=== PATIENT | female | born 2005 | race Caucasian/White ===

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

== ENCOUNTER 2024-10-06 11:33 | Outpatient (CLI) | payer BC, SELFPAY ==
[2024-10-06 12:41] LABS: Hematocrit 39.3 % (37.0-47.0); Hemoglobin 13.3 g/dL (12.2-16.2); Mean Corpuscular HGB Conc 33.8 g/dL (31.8-35.4); Mean Corpuscular Hemoglobin 29.8 pg (27.0-31.2); Mean Corpuscular Volume 88.1 fl (81-99); Mean Platelet Volume 9.8 fl (7.4-10.4); Neutrophils % 59.5 % (37.0-80.0); Platelet Count 297 K/mm3 (142-424); Red Blood Count 4.45 M/mm3 (4.20-5.40); Red Cell Distribution Width 12.5 % (11.5-17.5)
[2024-10-06 12:42] LABS: Basophils % 0.3 % (0.1-2.0); Eosinophils % 2.5 % (0.1-12.0); Lymphocytes # 1.9 K/mm3 (0.7-4.5); Lymphocytes % 31.9 % (10-50); Monocytes # 0.3 K/mm3 (0.1-1.0); Monocytes % 5.6 % (1.7-9.3); Neutrophils # 3.6 K/mm3 (1.8-7.8)
[2024-10-06 12:43] LABS: Alanine Aminotransferase 22 U/L (12-78); Albumin Level 4.2 g/dl (3.5-5.0); Albumin/Globulin Ratio 1.5 (1.1-1.8); Alkaline Phosphatase 62 U/L (38-126); Aspartate Amino Transferase 27 U/L (14-36); Bilirubin,Total 0.7 mg/dl (0.2-1.3); Blood Urea Nitrogen 11 mg/dl (7-17); Calcium 9.5 mg/dl (8.4-10.2); Carbon Dioxide 21 mmol/L (22.0-30.0); Chloride 106 mmol/L (98-107); Estimated Glomerular Filt Rate 127 ml/min (>60); GFR (African American) 154 ML/MIN (>60); Globulin 2.8 g/dL (1.3-3.2); Glucose 88 mg/dl (74-100); Sodium 137 mmol/L (136-145)
[2024-10-06 13:12] LABS: Thyroid Stimulating Hormone 0.84 uIU/mL (0.465-4.68)
[2024-10-06 13:15] LABS: Anion Gap 14.1 mEq/L (5-15); Potassium 4.1 mmoL/L (3.5-5.1)
== END 2024-10-06 23:59 | disposition home or self-care (01) ==
LOC: LAB 11:34
PROVIDERS: PCP Nurse Practitioner; Visit Provider Obstetrics & Gynecology
DX: R53.83 Other fatigue (principal); Z68.29 Body mass index [BMI] 29.0-29.9, adult; E66.3 Overweight
CPT/HCPCS: 36415; 80050; 80053; 82306; 84443; 85025

== ENCOUNTER 2024-10-17 09:49 | Outpatient (CLI) | payer BC, SELFPAY ==
--- NOTE | 2024-10-17 09:54 | US_ITS ---
PROCEDURE: US TRANSVAGINAL CLINICAL INDICATION: Painful menses, endometrosis, COMPARISON: No exams were available for comparison FINDINGS: Transvaginal sonographic images of the pelvis were obtained. UTERUS: 6.8 cm x 4.1cmx 2.8cm anteverted with a combined endometrial thickness of 9.7mm. There is a hypoechoic area in the endometrium on the left side measuring 4.8 mm. Possible polyp. LEFT OVARY: 3.3cmx2.5 cmx2.2cm with a volume of 9.5ml. There are multiple small peripheral follicles giving the ovary a polycystic appearance. There is a single dominant follicle measuring 1.2 cm. RIGHT OVARY: Surgically absent. Both ovaries are seen and appear normal. Doppler flow to both ovaries are seen. There is no fluid in the cul-de-sac. IMPRESSION: 1. Anteverted uterus normal in shape and size. The endometrium measures 9.7 mm and appears normal. 2. There is a 4.8 mm hyperechoic, round area within the endometrium that could represent a small polyp. 3. The left ovary appears polycystic and has a dominant follicle measuring 1.2 cm 4. Right ovary is surgically absent. 5. No fluid in the cul-de-sac. Dictated by: Kristopher Riggs MD 10/17/2024 11:00 Kristopher Riggs MD in [place] 10/17/2024 11:00
== END 2024-10-17 23:59 | disposition home or self-care (01) ==
LOC: RAD 09:50
PROVIDERS: PCP Nurse Practitioner; Visit Provider Obstetrics & Gynecology
DX: N80.9 Endometriosis, unspecified (principal); N94.6 Dysmenorrhea, unspecified; Z90.721 Acquired absence of ovaries, unilateral
CPT/HCPCS: 76830

== ENCOUNTER 2025-06-13 13:06 | Emergency (ER) | payer BC, SELFPAY ==
--- OUTSIDE RECORDS SUMMARY | 2006-03-07 | XMS_ITS | Encounter Summary ---
Author Organization [facility] Address [address] [place] [address] Care Team Providers Care Html Web Developer Name Role Phone Unavailable Primary Care Provider Unavailabl e Encounter Details Date Type Department Care Team (Late st Contact Info) Description 03/07/2006 Hospital Encounter [facility] Division of Otolaryngology [address] [place] [phone] Social History Tobacco Use Types Packs/Day [...]
--- OUTSIDE RECORDS SUMMARY | 2006-06-27 | XMS_ITS | Encounter Summary ---
Author Organization [facility] Address [address] [place] [address] Care Team Providers Care Excavating Machine Operator Name Role Phone Unavailable Primary Care Provider Unavailabl e Encounter Details Date Type Department Care Team (Late st Contact Info) Description 06/27/2006 Hospital Encounter [facility] Division of Otolaryngology [address] [place] [phone] Social History Tobacco Use Types Packs/Day [...]
--- OUTSIDE RECORDS SUMMARY | 2024-01-30 13:00 | XMS_ITS ---
Author Organization [facility] Address [address] [place] [address] Care Team Providers Care Cotton Breeder Name Role Phone Provider, [id number] Unavailable [phone] REASON FOR VISIT MMR (Measles / Mumps / Rubella) Vaccine Social History Sex Assigned At : Social History Observation Description Sex Assigned At Female Encounters Encounter Location Date Provider Diagnosis [id number] [address] 01/30/2024 [address] Provider Plan Of Treatment No Information Progress Notes * Savita GODWINeDOB: 4 (20 yo F)Acc No.[id number]:01/30/2024 Progress Note Patient: Elsy VILLALPANDO Provider: 1 [id number] Provider :2005 A ge:18 Y S ex:Female Date:01/30/2024 External Visit ID:[id number] Address:[address], [place] Pcp:[facility] Subjective: * Chief Complaints: * 1 . MMR (Measles / Mumps / Rubella) Vaccine. * Medical History: Objective: * Vitals: Assessment: Plan: * Treatment: * Billing Information: * Visit Code: * Procedure Codes: Care Plan Details* Images * 01.30.2024 ID INS * Electronic signature of [id number] Provider on 06/13/2025 at 12:34 PM CDT Sign off status: Pending * Provider: 1 8401 Provider Date: 0 01/30/2024 Generated for Printi ng/Faxing/eTransmitting on: 0 06/13/2025 12:34 PM CDT
[2025-06-13 13:16] VITALS: BP 123/74; PULSE 87; RESP 18; TEMP 36.7; O2SAT 97; BMI 30.2
--- OUTSIDE RECORDS SUMMARY | 2025-06-13 13:35 | XMS_ITS | Patient Health Record ---
Author Organization [facility] Address [address] [place] [address] Care Team Providers Care Pipe Fitter Supervisor Name Role Phone Melisa Land Unavailable [phone] Allergies No Known Allergies Results Component Value Reference Range Notes Flu/COVID Rapid Antigen ([facility]) Reviewed date:11/18/2024 10:35:33 AM Interpretation:Negative Performing Lab: Notes/Report: Negative Flu A neg Negative - Positive Flu B neg Negative - Positive SARS CoV 2 neg Negative - Positive Rapid Strep Screen ([facility]) Reviewed date:11/18/2024 10:35:05 AM Interpretation:Negative Performing Lab: Notes/Report: Negative Negative neg Reason For Referral No Information Medications Medication SIG (Take, Route, Frequency, Duration) Notes Start Date End Date Status Ibuprofen 400 MG 1 tablet with food o r milk as needed Orally Three times a day 11/18/2024 Active Kenyatta 3-0.02 MG 1 tablet Orally Once a day Active Saline Nasal [place] 0.65 % as directed Nasally 01/2025 Active Tylenol Cold & Flu Day/Night 30-15-500 & 30- 15-2-500MG as directed Orally 11/18/2024 Active Social History Tobacco Use: Social History Observation Description Date Details (start date - stop date) Never Smoker NA - NA Sex Assigned At : Social History Observation Description Sex Assigned At Female Tobacco Use Question Answer Notes Are you a Never smoker Problems Problem Type SNOMED Code ICD Code Onset Dates Problem Status W/U Status Risk Notes Problem Allergic rhinitis (81607535) Allergic rhinitis (J30.9) Active confirmed Problem Overweight (598564806) Overweight (BMI 25.0-29.9) (E66.3) Active confirmed Vital Signs Temperature 97.3 degrees Fahrenheit 11/18/2024 Respiratory Rate 16 /min 11/18/2024 Blood pressure diastolic 72 mm Hg 11/18/2024 Height 68 in 11/18/2024 Blood pressure systolic 112 mm Hg 11/18/2024 Weight 194 lbs 11/18/2024 BMI 29.49 kg/m2 11/18/2024 Encounters Encounter Location Date Provider Diagnosis [id number] [address] 11/18/2024 Melisa Land Acute nasopharyngiti s J00 Assessments Encounter Date Diagnosis (ICD Code) Assessment Notes Treatment Notes Treatment Clinical Notes Section Notes 11/18/2024 Acute nasopharyngitis (ICD-10 - J00) Plan Of Treatment No Information Insurance Providers Payer Name Payer Address Payer Phone Subscriber Number Group Number Insured Name Patient Relationship to Insured Coverage Start Date Coverage End Date [facility] [address] [place] [address] [id number] Elsy Stanley Self - patient is the insured Medical (General) History Medical History History ICD Code seasonal allergies Surgical History Surgery Date(Month/Year) Right Ovary Removed Sep 2023 wisdom teeth 06/2024 Hospitalization History Reason Date(Month/Year) none
--- OUTSIDE RECORDS SUMMARY | 2025-06-13 13:35 | XMS_ITS | Clinical Summary ---
Author Organization [facility] Address [address] [place] [address] Phone Care Team Providers Care Rod Mill Operator Name Role Phone Steffany Bustamante APRN Primary Care Provider [phone] Anisa Pérez MD Unavailable [phone] Allergies No known active allergies Medications L-Norgest&E Estradiol-E Estrad (SEASONIQUE) 0.15 mg-30 mcg (84)/10 mcg (7) Oral Tablet, Dose Pack, 3 Months Take 1 Tablet by mouth daily. 90 Tablet 3 12/16/2024 Active glycopyrrolate (ROBINUL) 2 mg Oral TabletIndication s:Hyperhidrosis Take 1 Tablet by mouth 3 times daily as needed. 60 Tablet 2 03/30/2025 Active Active Problems Problem Noted Date Diagnosed Date Polycystic ovarian syndrome 03/30/2025 Assessment & Plan (04/07/2025 6:21 AM EDT): The patient has a history of mild skin manifestations of hyperandrogenism such as facial hair growth. She does not have a history of irregular menstrual cycle. She is currently on oral contraceptives. The nature of PCOS was explained to the patient in detail. No additional intervention is needed at this time. Hirsutism 03/30/2025 Assessment & Plan (04/07/2025 6:24 AM EDT): Will measure androgens Hyperhidrosis 03/30/2025 Assessment & Plan (04/07/2025 6:23 AM EDT): The patient has no history of dry flushing. She has no other symptoms to suggest presence of hormonal disease to explain excessive perspiration. She is to try glycopyrrolate for symptomatic relief Nasal contusion 03/14/2025 Allergic rhinitis due to allergen 03/14/2025 Dysmenorrhea treated with oral contraceptive 01/2025 Assessment & Plan (12/16/2024 11:39 AM EST): Will change to Seasonique Menorrhagia with regular cycle 12/16/2024 Assessment & Plan (12/16/2024 11:41 AM EST): Change to Seasonique Doubt 4.8 mm ? Polyp is contributing to heavy menses I d/w pt could do an SIS--- pt declines-- I agree Endometrial polyp 12/16/2024 Overview (12/16/2024): ? 4.8 mm on outside U/S Nl endometrium here at last U/S observe Ovarian torsion 10/02/2023 Irritable bowel syndrome with diarrhea 3 Encounters Date Type Department Care Team Description 04/07/2025 Results Follow-Up [facility] [address] [address] Anisa Pérez MD TESTOSTERONE FREE, FEMALES/CHILDREN -REF LAB, TESTOSTERONE LEVEL TOTAL, DEHYDROEPIANDROSTERONE SULFATE 04/03/2025 Telephone [facility] [address] [place] [address] [place] [phone] Rosa Law MD Follow-up (To schedule allergy testing ) 04/01/2025 9:30 AM EDT Office Visit [facility] [address] [place] [address] Rosa Law MD Allergic rhinoconjunctivitis (Primary Dx); Hymenoptera allergy 03/31/2025 Travel 03/30/2025 11:34 AM EDT - 03/30/2025 11:59 PM EDT Hospital Encounter [facility] [address] [place] [address] Hirsutism Discharge Disposition: Home or Self Care 03/30/2025 10:45 AM EDT Office Visit [facility] [place] [address] [place] [phone] Anisa Pérez MD Polycystic ovarian syndrome (Primary Dx); Hirsutism; Hyperhidrosis 03/30/2025 Travel 03/14/2025 6:30 PM EDT Office Visit [facility] [address] [place] [address] Xi Parsons APRN Sinusitis, unspecified chronicity, unspecified location (Primary Dx) from Last 3 Months Immunizations Immunization Administration Dates Next Due MMR 01/30/2024 Surgical History Surgery Date Site/Laterality Comments LAPAROSCOPY 09/18/2023 Right Laparoscopy right salpingo oophorectomy; Surgeon: Dennis Moran MD; Location: [facility]; Service: Gynecology Social History Tobacco Use Types Packs/Day Years Used Date Smoking Tobacco: Never Passive Smoke Exposure: Never Smokeless Tobacco: Never Tobacco Cessation:Counseling Given: Not Answered Alcohol Use Standard Drinks/Week Comments Never 0 (1 standard drink = 0.6 oz pur e alcohol) Sexually Active Control Partners Comments Yes OCP Male Comments No Sex and Gender Information Value Date Recorded Sex Assigned at Not on file Legal Sex Female 6:42 AM EDT Gender Identity Not on file Sexual Orientation Not on file Obstetrics History Para Term AB IAB SAB Ectopic Multiple Livin g Live Births 0 0 0 0 0 0 0 0 0 0 0 Last Filed Vital Signs Vital Sign Reading Time Taken Comments Blood Pressure 112/76 04/01/2025 9:28 AM EDT Pulse 72 04/01/2025 9:28 AM EDT Temperature 36.4 C (97.5 F) 04/01/2025 9:28 AM EDT Respiratory Rate 14 03/14/2025 6:37 PM EDT Oxygen Saturation 99% 04/01/2025 9:28 AM EDT Inhaled Oxygen Concentration - - Weight 90.9 kg (200 lb 5 oz) 04/01/2025 9:28 AM EDT Height 172.7 cm (5' 8 ) 04/01/2025 9:28 AM EDT Body Mass Index 30.46 04/01/2025 9:28 AM EDT Plan of Treatment Upcoming Encounters Date Type Department Care Team (Late st Contact Info) Description 06/24/2025 3:45 PM EDT [facility] [address] [place] [phone] Dennis Moran MD [address] [place] [address] [address] [place] [address] Health Maintenance Due Date Last Done Comments Annual Wellness Exam 2007 HPV (1 - 3-dose series) 2019 Chlamydia Screening 2020 Meningococcal B Vaccine (1 of 2 - Standard) 2020 COVID-19 Vaccine ( - season) 2024 11/07/2021, 10/13/2021 Cervical Cancer Screening 2025 Pap Smear 2025 DTaP/TDaP/Td (7 - Td or Tdap) 05/19/2025 05/19/2015, 05/14/2008, 11/03/2005, Additional history exists Influenza Vaccine (#1) 2025 08/11/2024 Hepatitis B Vaccine Completed 02/13/2005, 2004, 2004 Pneumococcal Vaccine 0-49 Aged Out No longer eligible based on patient's age to complete this topic Procedures Procedure Name Priority Date/Time Associated Diagnosis Comments DEHYDROEPIANDROSTERONE SULFATE Routine 03/30/2025 11:42 AM EDT Hirsutism TESTOSTERONE LEVEL TOTAL Routine 025 11:42 AM EDT Hirsutism TESTOSTERONE FREE, FEMALES/CHILDREN -REF LAB Routine 03/30/2025 11:42 AM EDT Hirsutism from Last 3 Months Results * TESTOSTERONE FREE, FEMALES/CHILDREN -REF LAB (03/30/2025 11:42 AM EDT) Testosterone, Free, Female/Chi 1.4 0.8 - 7.4 pg/mL 04/05/2025 3:15 PM EDT [facility] Comment: REFERENCE INTERVAL: Testosterone, Free by Face And Fill Packer Females Postmenopausal: 0.6 - 3.8 pg/mL INTERPRETIVE INFORMATION: Testosterone, Free by Face And Fill Packer Free testosterone concentration is calculated using total testosterone (measured by mass spectrometry) and the binding constant of testosterone and sex hormone-binding globulin (SHBG). For individuals on testosterone-suppressing hormone therapies (e.g., antiandrogens or estrogens), refer to cisgender female reference intervals. For a complete set of all established reference intervals, refer to [employer]/Tests/Pub/[id number]. This test was developed and its performance characteristics determined by [facility]. It has not been cleared or approved by the [place] Food and Drug Administration. This test was performed in a CLIA certified laboratory and is intended for clinical purposes. Performed By: [facility] [address] [place] [address] Demurrage Worker: Roshan Perry MD, PhD CLIA Number: [id number] Blood VENOUS BLOOD / Unknown Venipuncture / Unknown 03/30/2025 11:42 AM EDT 03/30/2025 11:42 AM EDT us Anisa Pérez MD CHEMISTRY ORDERABLES Final Re sult [facility] [address] [place] [address] * DEHYDROEPIANDROSTERONE SULFATE (03/30/2025 11:42 AM EDT) Dhea Sulfate 174.00 148.00 - 407.00 mcg/dL 03/30/2025 3:04 PM EDT [facility] Blood VENOUS BLOOD / Unknown Venipuncture / Unknown 03/30/2025 11:42 AM EDT 03/30/2025 11:42 AM EDT Narrative [facility] - 03/30/2025 3:04 PM EDT Ingestion of florecita doses of biotin (>5 mg/day) taken within 8 hours of drawing blood sample can interfere with this immunoassay test. Anisa Pérez MD CHEMISTRY ORDERABLES Final Re sult Performing Organization Address [facility] de Phone Number [facility] [address] , [address] [place] [phone] * TESTOSTERONE LEVEL TOTAL (03/30/2025 11:42 AM EDT) Testosterone Lvl 20 12 - 48 ng/dL 03/30/2025 3:07 PM EDT [facility] Blood VENOUS BLOOD / Unknown Venipuncture / Unknown 03/30/2025 11:42 AM EDT 03/30/2025 11:42 AM EDT Narrative [facility] - 03/30/2025 3:07 PM EDT Interpretation of total testosterone level for individuals on replacement therapy requires clinical correlation by the prescribing provider. Reference intervals and/or therapeutic targets in these individuals may vary. Ingestion of florecita doses of biotin (>5 mg/day) taken within 8 hours of drawing blood sample can interfere with this immunoassay test. Anisa Pérez MD CHEMISTRY ORDERABLES Final Re sult Performing Organization Address [facility] de Phone Number [facility] [address] , [address] [place] [phone] from Last 3 Months Insurance [facility] PPO ANTHEM PPO ANTHEM PPO Care Teams Rod Mill Operator Relationship Specialty Start Date End Date Steffany Bustamante APRN [address] [facility] [address] [place] [phone] PCP - General Nurse Practitioner 09/18/23 Anisa Pérez MD [address] [place] [address] Internal Medicine-Endocrinology, Diabetes & Metabolism 04/07/25
--- OUTSIDE RECORDS SUMMARY | 2025-06-13 13:35 | XMS_ITS | Encounter Summary ---
Author Organization [place] [address] Care Team Providers Care Spray Booth Operator Name Role Phone Steffany Bustamante APRN Primary Care Provider Anisa Pérez MD Unavailable [phone] Encounter Details Date Type Department Care Team (Latest Contact Info) Description 04/07/2025 Results Follow-Up [facility] [address] [address] Anisa Pérez MD [address] [place] [address] TESTOSTERONE FREE, FEMALES/CHILDREN -REF LAB, TESTOSTERONE LEVEL TOTAL, DEHYDROEPIANDROSTERONE SULFATE Social History Tobacco Use Types Packs/Day Years Used Date Smoking Tobacco: Never Passive Smoke Exposure: Never Smokeless Tobacco: Never Alcohol Use Standard Drinks/Week Comments Never 0 (1 standard drink = 0.6 oz pur e alcohol) Sexually Active Control Partners Comments Yes OCP Male Comments No Sex and Gender Information Value Date Recorded Sex Assigned at Not on file Legal Sex Female 6:42 AM EDT Gender Identity Not on file Sexual Orientation Not on file documented as of this encounter Plan of Treatment Upcoming Encounters Date Type Department Care Team (Late st Contact Info) Description 06/24/2025 3:45 PM EDT [facility] [address] [facility] [address] [place] [phone] Dennis Moran MD [address] [address] documented as of this encounter Visit Diagnoses Not on filedocumented in this encounter Care Teams Spray Booth Operator Relationship Specialty Start Date End Date Steffany Bustamante APRN [address] [address] [address] [place] [address] PCP - General Nurse Practitioner 09/18/23 Anisa Pérez MD [address] [place] [address] Internal Medicine-Endocrinology, Diabetes & Metabolism 04/07/25 documented as of this encounter
--- OUTSIDE RECORDS SUMMARY | 2025-06-13 13:35 | XMS_ITS | Patient Health Record ---
Author Organization [facility] Address [address] [facility] [address] [id number] Care Team Providers Care Professor Of Economics Name Role Phone Ghazala Montes De Oca Primary Care Provider Allergies No Known Allergies Reason For Referral No Information Medications Medication SIG (Take, Route, Frequency, Duration) Notes Start Date End Date Status Olopatadine HCl 0.1 % 1 gtt in each affe cted eye 2 times a day; Duration: 7 days 03/15/2022 Active methylPREDNISolone 4 MG as directed - 6 tabs on day 1, 5 tabs on day 2, 4 tabs on day 3, 3 tabs on day 4, 2 tabs on day 5, 1 tab on day 6 orally 03/15/2022 Active Cetirizine HCl 10 MG 1 tab(s) orally onc e a day Active Flonase Allergy Relief 50 MCG/ACT 1 spray(s) in each nostril once a day Active Agnes 0.25-35 MG-MCG TAKE 1 TABLET BY VERONICA TH EVERY DAY FOR 28 DAYS; Duration: 28 Active Montelukast Sodium 10 MG 1 tab(s) orally once a day; Duration: 30 day(s) 03/15/2022 Active Immunizations Vaccine Route Administration Date Status Comme nts Varivax SC Subcutaneous 05/19/2015 Administered tuberculin (ppd) SC Subcutaneous 10/21/2021 Administered Tetanus Tdap-Adacel (over 7yrs) IM Intramuscular 05/19/2015 Administered Menactra IM Intramuscular 05/19/2015 Administered Menactra IM Intramuscular 10/20/2020 Administered Hep A- Pediatric IM Intramuscular 03/28/2018 Administered Hep A- Pediatric IM Intramuscular 10/17/2018 Administered Problems Problem Type SNOMED Code ICD Code Onset Dates Problem Status W/U Status Risk Notes Problem Excessive and frequent menstruation (909182184) Menorrhagia with regular cycle (N92.0) Active confirmed Problem Allergic rhinitis (79737220) Seasonal allergic rhinitis due to other allergic trigger (J30.89) Active confirmed Plan Of Treatment No Information Insurance Providers Payer Name Payer Address Payer Phone Subscriber Number Group Number Insured Name Patient Relationship to Insured Coverage Start Date Coverage End Date [employer] [address] [place] [address] [id number] SWATHI GODWIN Child - Insured does not have Financial Responsibility (includes legally adopted child) Medications Administered Medication Instructions Date of Administration Dosage Notes Dexamethasone 03/08/2021 1 mL rocephin one gram IM 03/08/2021 1 g Medical (General) History Surgical History Surgery Date(Month/Year)
--- OUTSIDE RECORDS SUMMARY | 2025-06-13 13:35 | XMS_ITS | Clinical Summary ---
Author Organization [facility] Address [address] [place] [address] Care Team Providers Care Copy Lathe Tender Name Role Phone Unavailable Primary Care Provider Unavailabl e Source Comments [facility] fully rolled [facility] with thefollowing exceptions:General Clinical Research [facility] Social History Tobacco Use Types Packs/Day Years Used Date Smoking Tobacco: Never Assessed Comments Unknown Sex and Gender Information Value Date Recorded Sex Assigned at Not on file Legal Sex Female 5:19 AM EST Gender Identity Not on file Sexual Orientation Not on file Plan of Treatment Health Maintenance Due Date Last Done Comments MMR IMMUNIZATION (1 of 1 - S tandard series) 2005 DTAP/Tdap/Td IMMUNIZATION (1 - Tdap) 2011 VARICELLA IMMUNIZATION (1 of 2 - 13+ 2-dose series) 2017 HPV IMMUNIZATION (1 - 3-dose series) 2019 MENINGOCOCCAL B VACCINE (1 o f 2 - Standard) 2020 HEPATITIS B IMMUNIZATION (1 of 3 - 19+ 3-dose series) 2023 COVID-19 Vaccine (1 - 2023-2 5 season) 2024 AMB SEASONAL FLU VACCINE (#1) 08/15/2025 HIB IMMUNIZATION Aged Out No longer e ligible based on patient's age to complete this topic IPV IMMUNIZATION Aged Out No longer e ligible based on patient's age to complete this topic MCV4 IMMUNIZATION Aged Out No longer eligible based on patient's age to complete this topic PNEUMOCOCCAL IMMUNIZATION Aged Out No longer eligible based on patient's age to complete this topic Respiratory Syncytial Virus (RSV) <20mo Aged Out No longer eligible b ased on patient's age to complete this topic
--- OUTSIDE RECORDS SUMMARY | 2025-06-13 13:35 | XMS_ITS | Encounter Summary ---
Author Organization [facility] Address [address] [place] [address] Care Team Providers Care Swatch Checker Name Role Phone Steffany Bustamante APRN Primary Care Provider [phone] Anisa Pérez MD Unavailable [phone] Reason for Visit * Reason Onset Date Comments Follow-up 04/03/2025 To schedule chele rgy testing Encounter Details Date Type Department Care Team (Late st Contact Info) Description 04/03/2025 Telephone [facility] [address] [address] Rosa Law MD [address] [place] [address] Follow-up (To schedule allergy testing ) Social History Tobacco Use Types Packs/Day Years [...] on file documented as of this encounter Miscellaneous Notes * Telephone Encounter - Pushpa Dawn CMA - 04/29/2025 11:02 AM EDT Patient canceled testing scheduled for 05/07/25 via [employer]. Called and left voicemail to inquire about rescheduling * Telephone Encounter - Cristina Corrales CCMA - 04/03/2025 11:34 AM EDT Images from the original note were not included. Called patient to schedule: no- scheduled in office Ordering provider: MACI Diagnosis code for testing: J30.9 Test details: Environmental Is Spirometry/PFT required: no Is FeNO required: no Current Outpatient Medications Medication glycopyrrolate (ROBINUL) 2 mg Oral Tablet L-Norgest&E Estradiol-E Estrad (SEASONIQUE) 0.15 mg-30 mcg (84)/10 mcg (7) Oral Tablet, Dose Pack, 3 Months No current facility-administered medications for this visit. Medications to hold for testing and duration: None listed Patients insurance/deductible: [place] $250 deposit required? no Deductible In Calendar Year -- $1,500.00 In Calendar Year -- $2,750.00 In Remaining -- $278.66 In Remaining -- $1,208.37 documented in this encounter Plan of Treatment Upcoming Encounters Date Type Department Care Team (Late st Contact Info) Description 06/24/2025 3:45 PM EDT Office Visit [facility] [address] [place] [address] [place] [phone] Dennis Moran MD [address] [place] [address] documented as of this encounter Visit Diagnoses Not on filedocumented in this encounter Care Teams Swatch Checker Relationship Specialty Start Date End Date Steffany Bustamante APRN [address] [facility] [address] [place] [address] PCP - General Nurse Practitioner 09/18/23 Anisa Pérez MD [address] [place] [address] Internal Medicine-Endocrinology, Diabetes & Metabolism 04/07/25 documented as of this encounter
[2025-06-13 13:46] LABS: Microscopic, Urine URINE MICROSCOPIC (MICROSCOPIC)
--- NOTE | 2025-06-13 13:46 | HMH.EDGENADL ---
Discharge Plan Disposition Patient Disposition: Home, Self-Care Prescriptions Prescriptions: New tranexamic acid 650 mg tablet 1,300 mg PO TID 5 Days Qty: 30 0RF oxycodone 5 mg tablet 5 mg PO Q6H PRN (Reason: pain) Qty: 12 0RF No Action L norgest/e.estradiol-e.estrad 0.15 mg-30 mcg (84)/10 mcg (7) tablets,dose pack,3 month PO DAILY Patient Comments: TAKE 1 TABLET BY MOUTH EVERY DAY Referrals Follow up/Referrals: Ni Connolly DO [Staff Physician, CHILD CARE ASSISTANT] - See instructions Steffany Bustamante APRN [Primary Care Provider, Family Practice] - See instructions Activity Restrictions/Add. Instructions Additional Instructions/Restrictions: Your abdominal pain is likely from a ruptured ovarian cyst. You can take Tylenol and oxycodone to help with pain for this. You were also found to have either a polyp or endometriosis within the uterus as a likely source of your bleeding. Dr. Connolly would like you to take tranexamic acid 1300 mg 3 times a day for the next 5 days to help with your bleeding. I encourage you to call her office to schedule follow-up appointment to discuss further management of your vaginal bleeding/possible endometriosis. If you develop any new or worsening symptoms, or if you become concerned for your health for any reason, return to the emergency department for evaluation. Clinical Impressions Clinical Impression: Abnormal vaginal bleeding, Ovarian cyst rupture Print Language Print Language: Portuguese Discharge ED Provider: Thomas Berger General Adult HPI <Dimas De Jesus DO - Last Filed: 06/13/25 15:50> General Chief complaint: PAIN Stated complaint: pelvic pain Time Seen by Provider: 06/13/25 13:33 Mode of Arrival: Ambulatory Source of Information: Patient Description of Symptoms (Recalled from ER Triage Doc. by RN): lt pevlic pain started yesterday and has gotten worse, diesel bus mechanic doctor made aware. 05/24 pain. pt started a new control medicine and says she has been bleeding for 23 days since starting it. states she does have polyps in uterus History of Present Illness HPI narrative: This is a 20-year-old female patient, with past medical history of right-sided ovarian torsion status post oophorectomy, who is presenting to the emergency department today for evaluation of left-sided adnexal pain. Patient states that back in December of this year she began taking oral control. She states that she has not noticed any changes in her periods and she has had very irregular periods since that time. Over the last 21 days she has had vaginal bleeding every single day. She tells me that this morning she woke up with severe left-sided adnexal pain that feels identical to the last time that she was diagnosed with ovarian torsion. She is not having any gastrointestinal symptoms. She denies urinary symptoms. She is also not having any vaginal discharge. She is sexually active and states that there is a possibility she could be . Related Data Home Medications ?Medication ?Instructions ?Recorded ?Confirmed L norgest/E estradiol-E estrad tab PO DAILY 03/02/25 03/02/25 0.15 mg-30 mcg (84)/10 mcg(7) tabs,3mos Previous Rx's ?Medication ?Instructions ?Recorded oxycodone 5 mg tablet 5 mg PO Q6H PRN pain #12 tabs 06/13/25 tranexamic acid 650 mg tablet 1,300 mg (2 x 650 mg) PO TID 5 06/13/25 days #30 tabs Allergies Allergy/AdvReac Type Severity Reaction Status Date / Time No Known Allergies Allergy Verified 03/02/25 11:27 [facility] <Dimas De Jesus DO - Last Filed: 06/13/25 15:50> [facility] Disclaimer: The information contained in this section may have been updated after the patient was seen, as this information can be updated by other users. Medical History (Updated 06/13/25 @ 16:38 by Thomas Berger MD) PCOS (polycystic ovarian syndrome) Hyperhidrosis Allergic rhinitis Encounter for surveillance of contraceptive pills Dysmenorrhea Abnormal menstrual periods Surgical History History of wisdom tooth extraction History of right oophorectomy Social History Smoking Status: Never smoker alcohol intake: never current occupational status: student Travel in the last 8 weeks?: None Have you lived/traveled outside US in past 30 days?: No Contact w/someone who lives/traveled outside US past 30 days?: No Exposure to someone with infectious disease in past 14 days?: No Do you have a fever (greater than 100.4 F or 38 C)?: No Have you tested positive for COVID-19?: No Exposed to someone with COVID-19 in past 14 days?: No Do you have a sore throat?: No Do you have a cough?: No Do you have any weakness?: No Do you have any diarrhea?: No Are you experiencing any unusual bleeding?: No Do you have any muscle aches/pain?: No Do you have any abdominal pain?: No Are you experiencing loss of taste or smell?: No Other Medical History Have you received the Flu Vaccine for this season: No Have you received the Pneumonia Vaccine: No <Dimas De Jesus DO - Last Filed: 06/13/25 15:50> ROS Obtained: Yes Systems reviewed as appropriate & no additional complaints except as documented Physical Exam <Dimas De Jesus DO - Last Filed: 06/13/25 15:50> General General appearance: other (See MDM) Respiratory Respiratory exam: Present other (See MDM) Cardiovascular Cardiovascular exam: Present other (See MDM) Neurological Exam Neurological exam: Present other (See MDM) Medical Decision Making <Dimas De Jesus DO - Last Filed: 06/13/25 15:50> Medical Records Medical records reviewed: Yes I reviewed the patient's medical records. Screening: Per USPSTF and CDC recommendations, given the prevalence of disease in our region, it is our hospital?s policy to screen for HIV and viral Hepatitis for all patients aged 18 and over and those with ongoing risk factors. Issac Inquiry Pt receiving controlled substance: No Issac was queried for this patient: No Vital Signs: 06/13/25 13:16 06/13/25 14:30 06/13/25 15:00 Temperature 98.0 F Temperature Source Oral Pulse Rate 82 83 Pulse Rate [Left Brachial] 87 Respiratory Rate 18 Blood Pressure 145/96 H 135/88 Blood Pressure [Left Arm] 123/74 Blood Pressure Mean [Left Arm] 90 02 Sat by Pulse Oximetry 97 97 97 Oxygen Delivery Method Room Air 06/13/25 16:00 Temperature Temperature Source Pulse Rate 74 Pulse Rate [Left Brachial] Respiratory Rate Blood Pressure Blood Pressure [Left Arm] Blood Pressure Mean [Left Arm] 02 Sat by Pulse Oximetry 99 Oxygen Delivery Method Lab Data Lab Results 06/13/25 13:20: Urine Color Yellow, Urine Appearance Clear, Urine pH 6.0, Ur Specific [place] <= 1.005, Urine Protein Negative, Urine Glucose (UA) Negative, Urine Ketones Negative, Urine Blood 2+ A, Urine Nitrate Negative, Urine Bilirubin Negative, Urine Urobilinogen 0.2, Ur Leukocyte Esterase Negative, Urine RBC Occasional, Urine WBC Occasional, Ur Squamous Epith Cells 3-5, Urine Bacteria Trace, Urine HCG, Qual Negative 06/13/25 14:10: WBC 6.5, RBC 4.66, Hgb 13.8, Hct 40.7, MCV 87.3, MCH 29.6, MCHC 33.9, RDW 12.3, Plt Count 334, MPV 9.5, Neut % (Auto) 57.4, Lymph % (Auto) 30.6, [place] % (Auto) 7.0, Eos % (Auto) 4.3, Baso % (Auto) 0.5, Neut # (Auto) 3.7, Lymph # (Auto) 2.0, [place] # (Auto) 0.5, Eos # (Auto) 0.3, Baso # (Auto) 0.0, Sodium 140, Potassium 3.9, Chloride 112 H, Carbon Dioxide 20 L, Anion Gap 11.9, BUN 9, Creatinine 0.50 L, Estimated Creat Clear 254, Estimated GFR 156, Est GFR ( Amer) 188, Glucose 94, Calcium 9.6, Total Bilirubin 0.6, AST 29, ALT 18, Alkaline Phosphatase 61, Total Protein 7.9, Albumin 4.7, Globulin 3.2, Albumin/Globulin Ratio 1.5, Lipase 31 06/13/25 14:10 06/13/25 14:10 Orders (Tests/Meds): ED MEDICATIONS Discontinued Medications Generic Name Dose Route Start Last Admin Trade Name Freq PRN Reason Stop Dose Admin Morphine Sulfate 4 mg 06/13/25 13:59 06/13/25 14:14 Morphine 4mg/Ml Syringe IV 06/13/25 14:00 4 mg ONCE ONE Administration Morphine Sulfate 4 mg 06/13/25 16:30 Morphine 4mg/Ml Syringe IV 06/13/25 16:31 ONCE ONE Ondansetron HCl 4 mg 06/13/25 13:59 06/13/25 14:14 Ondansetron 4mg/2ml Vial IV 06/13/25 14:00 4 mg ONCE ONE Administration ORDERS Category Date Time Status US transvaginal Stat Exams 06/13/25 13:58 Completed CBC w/Auto Diff [Complete Blood Count Auto Diff] Stat Lab 06/13/25 14:10 Completed CMP [Comprehensive Metabolic Panel] Stat Lab 06/13/25 14:10 Completed Lipase Stat Lab 06/13/25 14:10 Completed UA [Urinalysis and Microscopic] Stat Lab 06/13/25 13:20 Completed Urine , HCG Qual. Stat Lab 06/13/25 13:20 Completed Medical Decision Narrative: In summary, this is a 20-year-old female patient who is presenting to the emergency department today for evaluation of left-sided adnexal pain. Comorbidities include a past medical history of right-sided ovarian torsion requiring right sided oophorectomy. Otherwise patient is previously healthy. On initial evaluation of the patient they were resting comfortably in no acute distress and nontoxic in appearance. They are hemodynamically stable, saturating well room air, and are neurologically intact. On physical examination the patient is alert and oriented and appropriately interactive with a GCS of 15. Heart and lungs clear to auscultation bilaterally. Abdominal exam is benign aside from the left lower quadrant where she does have significant tenderness with rebound tenderness as well. Differential diagnosis includes left-sided ovarian torsion, ectopic , heterotopic , intrauterine , electrolyte derangement, urinary tract infection, pyelonephritis, among others. Patient states that she is monogamous with 1 partner and has not had any vaginal discharge so I do feel that pelvic inflammatory disease and its sexually transmitted diseases are less likely Workup was initiated with hematologic labs including a test and urinalysis. We have also ordered a transvaginal ultrasound to assess for ovarian torsion. Labs were personally interpreted by me and demonstrate no evidence of urinary tract infection. There is no significant anemia. No electrolyte derangement or acute kidney injury. No leukocytosis. At the time of shift change the patient's transvaginal ultrasound was pending. This case was handed off to the oncoming resident who will follow up on these results and disposition the patient probably. Transfer of Care <Thomas Berger MD - Last Filed: 06/13/25 16:46> Vital Signs: 06/13/25 13:16 06/13/25 14:30 06/13/25 15:00 Temperature 98.0 F Temperature Source Oral Pulse Rate 82 83 Pulse Rate [Left Brachial] 87 Respiratory Rate 18 Blood Pressure 145/96 H 135/88 Blood Pressure [Left Arm] 123/74 Blood Pressure Mean [Left Arm] 90 02 Sat by Pulse Oximetry 97 97 97 Oxygen Delivery Method Room Air 06/13/25 16:00 Temperature Temperature Source Pulse Rate 74 Pulse Rate [Left Brachial] Respiratory Rate Blood Pressure Blood Pressure [Left Arm] Blood Pressure Mean [Left Arm] 02 Sat by Pulse Oximetry 99 Oxygen Delivery Method Lab Data Lab Results 06/13/25 13:20: Urine Color Yellow, Urine Appearance Clear, Urine pH 6.0, Ur Specific [place] <= 1.005, Urine Protein Negative, Urine Glucose (UA) Negative, Urine Ketones Negative, Urine Blood 2+ A, Urine Nitrate Negative, Urine Bilirubin Negative, Urine Urobilinogen 0.2, Ur Leukocyte Esterase Negative, Urine RBC Occasional, Urine WBC Occasional, Ur Squamous Epith Cells 3-5, Urine Bacteria Trace, Urine HCG, Qual Negative 06/13/25 14:10: WBC 6.5, RBC 4.66, Hgb 13.8, Hct 40.7, MCV 87.3, MCH 29.6, MCHC 33.9, RDW 12.3, Plt Count 334, MPV 9.5, Neut % (Auto) 57.4, Lymph % (Auto) 30.6, [place] % (Auto) 7.0, Eos % (Auto) 4.3, Baso % (Auto) 0.5, Neut # (Auto) 3.7, Lymph # (Auto) 2.0, [place] # (Auto) 0.5, Eos # (Auto) 0.3, Baso # (Auto) 0.0, Sodium 140, Potassium 3.9, Chloride 112 H, Carbon Dioxide 20 L, Anion Gap 11.9, BUN 9, Creatinine 0.50 L, Estimated Creat Clear 254, Estimated GFR 156, Est GFR ( Amer) 188, Glucose 94, Calcium 9.6, Total Bilirubin 0.6, AST 29, ALT 18, Alkaline Phosphatase 61, Total Protein 7.9, Albumin 4.7, Globulin 3.2, Albumin/Globulin Ratio 1.5, Lipase 31 Orders (Tests/Meds): ED MEDICATIONS Discontinued Medications Generic Name Dose Route Start Last Admin Trade Name Freq PRN Reason Stop Dose Admin Morphine Sulfate 4 mg 06/13/25 13:59 06/13/25 14:14 Morphine 4mg/Ml Syringe IV 06/13/25 14:00 4 mg ONCE ONE Administration Morphine Sulfate 4 mg 06/13/25 16:30 Morphine 4mg/Ml Syringe IV 06/13/25 16:31 ONCE ONE Ondansetron HCl 4 mg 06/13/25 13:59 06/13/25 14:14 Ondansetron 4mg/2ml Vial IV 06/13/25 14:00 4 mg ONCE ONE Administration ORDERS Category Date Time Status US transvaginal Stat Exams 06/13/25 13:58 Completed CBC w/Auto Diff [Complete Blood Count Auto Diff] Stat Lab 06/13/25 14:10 Completed CMP [Comprehensive Metabolic Panel] Stat Lab 06/13/25 14:10 Completed Lipase Stat Lab 06/13/25 14:10 Completed UA [Urinalysis and Microscopic] Stat Lab 06/13/25 13:20 Completed Urine , HCG Qual. Stat Lab 06/13/25 13:20 Completed Medical Decision Narrative: In summary, this is a 20-year-old female patient who is presenting to the emergency department today for evaluation of left-sided adnexal pain. Comorbidities include a past medical history of right-sided ovarian torsion requiring right sided oophorectomy. Otherwise patient is previously healthy. On initial evaluation of the patient they were resting comfortably in no acute distress and nontoxic in appearance. They are hemodynamically stable, saturating well room air, and are neurologically intact. On physical examination the patient is alert and oriented and appropriately interactive with a GCS of 15. Heart and lungs clear to auscultation bilaterally. Abdominal exam is benign aside from the left lower quadrant where she does have significant tenderness with rebound tenderness as well. Differential diagnosis includes left-sided ovarian torsion, ectopic , heterotopic , intrauterine , electrolyte derangement, urinary tract infection, pyelonephritis, among others. Patient states that she is monogamous with 1 partner and has not had any vaginal discharge so I do feel that pelvic inflammatory disease and its sexually transmitted diseases are less likely Workup was initiated with hematologic labs including a test and urinalysis. We have also ordered a transvaginal ultrasound to assess for ovarian torsion. Labs were personally interpreted by me and demonstrate no evidence of urinary tract infection. There is no significant anemia. No electrolyte derangement or acute kidney injury. No leukocytosis. At the time of shift change the patient's transvaginal ultrasound was pending. This case was handed off to the oncoming resident who will follow up on these results and disposition the patient probably. Transfer of Care Thomas Berger MD I assumed care of this patient at approximately 1530 pending ultrasound results. Ultrasound resulted and showed some mild free fluid in the left adnexa. Per radiology, there is a polyp versus endometriosis within the endometrium. No uterine masses. Status post right oophorectomy. Is felt that patient's bleeding is likely secondary to this polyp versus endometriosis and I discussed the patient's case with Dr. Connolly with CHILD CARE ASSISTANT who felt that patient's free fluid was likely secondary to a ruptured ovarian cyst and recommended tranexamic acid 1300 mg 3 times daily for the next 5 days for her vaginal bleeding and recommended outpatient follow-up to discuss further management of her possible endometriosis. Patient was also administered 4 mg of IV morphine for continued abdominal pain. I discussed the results and recommendations of Dr. Connolly with the patient and family at bedside and they were in agreement with this plan. I checked them to call Dr. Connolly's office to schedule follow-up appointment and gave strict return precautions. All questions were answered. They demonstrated understanding and were in agreement this plan. She was then discharged from the emergency department in stable condition. Will send prescription for 3 days of oxycodone as well to help with pain. Critical Care <Dimas De Jesus DO - Last Filed: 06/13/25 15:50> Critical Care Time Critical Care Time: No
[2025-06-13 13:49] LABS: Bilirubin,Urine Negative (Negative); Color,Urine YELLOW (Yellow); Glucose,Urine (UA) Negative (Negative); Ketones,Urine Negative (Negative); Leukocyte Esterase,Urine Negative (Negative); PH,Urine 6.0 (5.0-8.5); Protein,Urine Negative (Negative); Specific Gravity, Urine <= 1.005 (1.005-1.030); Urobilinogen,Urine 0.2 EU/dl (0.2)
[2025-06-13 13:51] LABS: Urine Pregnancy, HCG Qual. Negative (Negative)
--- NOTE | 2025-06-13 13:58 | US_ITS ---
PROCEDURE INFORMATION: Exam: US Duplex Artery and Vein of the Abdominal and/or Reproductive Organs. Complete Ovaries Exam date and time: 06/13/2025 3:03 PM Age: 20 years old Clinical indication: Pelvic pain; Prior surgery; Surgery date: 6+ months; Surgery type: RT ov due to torsion; Additional info: L adnexal pain, HX of torsion TECHNIQUE: Imaging protocol: Real-time duplex ultrasound scan of the arterial and venous flow with color Doppler flow and spectral waveform analysis with image documentation. Duplex exam was performed to evaluate for torsion and other vascular conditions. Total images: [id number] COMPARISON: US TRANSVAGINAL 10/17/2024 9:53 AM FINDINGS: Right ovary/adnexa: Status post right oophorectomy. Left ovary/adnexa: Blood flow is demonstrated to the left ovary. No evidence of left ovarian torsion. IMPRESSION: No evidence of left ovarian torsion. PROCEDURE INFORMATION: Exam: US Pelvis, Transvaginal, Non-Obstetric Exam date and time: 06/13/2025 3:03 PM Age: 20 years old Clinical indication: Pelvic pain; Prior surgery; Surgery date: 6+ months; Surgery type: RT ov due to torsion; Additional info: L adnexal pain, HX of torsion TECHNIQUE: Imaging protocol: Real-time transvaginal pelvic (non-obstetric) ultrasound with image documentation. Transvaginal imaging was used for better evaluation of the endometrium, adnexa, and/or cervix. COMPARISON: US TRANSVAGINAL 10/17/2024 9:53 AM FINDINGS: Uterus: Uterus measures 7.7 x 3.2 x 3.8 cm. Endometrium measures 1.1 cm. Small polyp or area of endometriosis noted within the endometrial canal. No uterine masses. Right ovary/adnexa: Status post right oophorectomy. Left ovary/adnexa: Left ovary measures 4.2 x 2.1 x 2.3 cm. Small amount of fluid is noted within the left adnexa. Urinary bladder: Urinary bladder is limited. IMPRESSION: 1. Small amount of fluid is noted within the left adnexa. 2. Small polyp or area of endometriosis noted within the endometrial canal. 3. No uterine masses.
--- NOTE | 2025-06-13 13:59 | PC.NURSE ---
call made to [facility] to call in US for transvaginal
[2025-06-13] MEDS: ONDANSETRON 4MG/2ML VIAL 4 MG IV ×2 (14:14→17:03)
[2025-06-13] MEDS: MORPHINE 4MG/ML SYRINGE 4 MG IV ×2 (14:14→17:02)
[2025-06-13 14:23] LABS: Hematocrit 40.7 % (37.0-47.0); Hemoglobin 13.8 g/dL (12.2-16.2); Immature Granulocytes % 0.2 %; Mean Corpuscular HGB Conc 33.9 g/dL (31.8-35.4); Mean Corpuscular Hemoglobin 29.6 pg (27.0-31.2); Mean Corpuscular Volume 87.3 fl (81-99); Nucleated Red Blood Cells % 0 %; Platelet Count 334 K/mm3 (142-424); Red Blood Count 4.66 M/mm3 (4.20-5.40); Red Cell Distribution Width-SD 39.3 fL; White Blood Count 6.5 K/mm3 (4.8-10.8)
[2025-06-13 14:27] LABS: Albumin Level 4.7 g/dl (3.5-5.0); Chloride 112 mmol/L (98-107); Potassium 3.9 mmoL/L (3.5-5.1); Sodium 140 mmol/L (136-145)
[2025-06-13 14:30] VITALS: BP 145/96; PULSE 82; O2SAT 97
[2025-06-13 14:30] LABS: Alanine Aminotransferase 18 U/L (12-78); Albumin/Globulin Ratio 1.5 (1.1-1.8); Alkaline Phosphatase 61 U/L (38-126); Anion Gap 11.9 mEq/L (5-15); Aspartate Amino Transferase 29 U/L (14-36); Bilirubin,Total 0.6 mg/dl (0.2-1.3); Blood Urea Nitrogen 9 mg/dl (7-17); Carbon Dioxide 20 mmol/L (22.0-30.0); Creatinine Clearance Estimated 254 mL/min (50-200); Creatinine,Serum 0.50 mg/dl (0.52-1.04); Estimated Glomerular Filt Rate 156 ml/min (>60); GFR (African American) 188 ML/MIN (>60); Globulin 3.2 g/dL (1.3-3.2); Lipase 31 U/L (23-300); Total Protein,Serum 7.9 g/dl (6.3-8.2)
[2025-06-13 14:31] LABS: Calcium 9.6 mg/dl (8.4-10.2); Glucose 94 mg/dl (74-100)
[2025-06-13 14:49] LABS: Bacteria,Urine Trace /lpf; RBC,Urine Occasional #/hpf (0-3); WBC,Urine Occasional #/hpf (0-3)
[2025-06-13 15:00] VITALS: BP 135/88; PULSE 83; O2SAT 97
--- NOTE | 2025-06-13 15:14 | PC.NURSE ---
pt to ultrasound
[2025-06-13 16:00] VITALS: PULSE 74; O2SAT 99
--- NOTE | 2025-06-13 16:31 | PC.NURSE ---
OB paged per
[2025-06-13 17:14] VITALS: BP 137/86; PULSE 78; RESP 17; TEMP 36.7; O2SAT 97
== END 2025-06-13 17:17 | disposition home or self-care (01) ==
PROVIDERS: Student in an Organized Health Care Education/Training Program; Emergency Provider Student in an Organized Health Care Education/Training Program; PCP Nurse Practitioner
DX: N83.209 Unspecified ovarian cyst, unspecified side (principal); N93.9 Abnormal uterine and vaginal bleeding, unspecified
CPT/HCPCS: 76830; 80053; 81001; 81025; 83690; 85025; 96374; 96375; 96376; 99283; 99284; J2270; J2405

== ENCOUNTER 2025-06-17 14:19 | Outpatient (CLI) | payer BC, SELFPAY ==
--- OUTSIDE RECORDS SUMMARY | 2006-03-07 | XMS_ITS | Encounter Summary ---
Author Organization [facility] Address [address] [place] [address] Care Team Providers Care Tip Cementer Name Role Phone Unavailable Primary Care Provider Unavailabl e Encounter Details Date Type Department Care Team (Late st Contact Info) Description 03/07/[address] [facility] Division of Otolaryngology [address] [place] [phone] Social History Tobacco Use Types Packs/Day [...]
--- OUTSIDE RECORDS SUMMARY | 2006-06-27 | XMS_ITS | Encounter Summary ---
Author Organization [facility] Address [address] [place] [address] Care Team Providers Care Substation Engineer Name Role Phone Unavailable Primary Care Provider Unavailabl e Encounter Details Date Type Department Care Team (Late st Contact Info) Description 06/27/[address] [facility] Division of Otolaryngology [address] [place] [phone] Social History Tobacco Use Types Packs/Day [...]
--- OUTSIDE RECORDS SUMMARY | 2024-01-30 13:00 | XMS_ITS ---
Author Organization [facility] Address [address] [place] [address] Care Team Providers Care Novelty Balloon Assembler And Packer Name Role Phone Provider, [phone] Unavailable [phone] REASON FOR VISIT MMR (Measles / Mumps / Rubella) Vaccine Social History Sex Assigned At : Social History Observation Description Sex Assigned At Female Encounters Encounter Location Date Provider Diagnosis [id number] [address] 01/30/2024 [address] Provider Plan Of Treatment No Information Progress Notes * Savita GODWINeDOB: 4 (20 yo F)Acc No.[id number]:01/30/2024 Progress Note Patient: Elsy VILLALPANDO Provider: 1 [id number] Provider :2005 A ge:18 Y S ex:Female Date:01/30/2024 External Visit ID:[id number] Address:[address], [place] Pcp:[facility] Subjective: * Chief Complaints: * 1 . MMR (Measles / Mumps / Rubella) Vaccine. * Medical History: Objective: * Vitals: Assessment: Plan: * Treatment: * Billing Information: * Visit Code: * Procedure Codes: Care Plan Details* Images * 01.30.2024 ID INS * Electronic signature of [id number] Provider on 06/19/2025 at 07:36 AM CDT Sign off status: Pending * Provider: 1 [id number] Provider Date: 0 01/30/2024 Generated for Leei ng/Faxing/eTransmitting on: 0 06/19/2025 07:36 AM CDT
[2025-06-17 19:51] LABS: Hematocrit 43.7 % (37.0-47.0); Hemoglobin 14.4 g/dL (12.2-16.2); Immature Granulocytes % 0 %; Mean Corpuscular HGB Conc 33.0 g/dL (31.8-35.4); Mean Corpuscular Hemoglobin 29.0 pg (27.0-31.2); Mean Corpuscular Volume 88.1 fl (81-99); Nucleated Red Blood Cells % 0 %; Platelet Count 352 K/mm3 (142-424); Red Blood Count 4.96 M/mm3 (4.20-5.40); Red Cell Distribution Width-SD 38.9 fL; White Blood Count 5.9 K/mm3 (4.8-10.8)
[2025-06-17 20:34] LABS: Albumin Level 4.9 g/dl (3.5-5.0); Chloride 107 mmol/L (98-107); Potassium 4.4 mmoL/L (3.5-5.1); Sodium 140 mmol/L (136-145)
[2025-06-17 20:37] LABS: Alanine Aminotransferase 16 U/L (12-78); Albumin/Globulin Ratio 1.6 (1.1-1.8); Alkaline Phosphatase 76 U/L (38-126); Anion Gap 15.4 mEq/L (5-15); Aspartate Amino Transferase 24 U/L (14-36); Bilirubin,Total 0.5 mg/dl (0.2-1.3); Blood Urea Nitrogen 11 mg/dl (7-17); Calcium 10.1 mg/dl (8.4-10.2); Carbon Dioxide 22 mmol/L (22.0-30.0); Creatinine,Serum 0.60 mg/dl (0.52-1.04); Estimated Glomerular Filt Rate 126 ml/min (>60); GFR (African American) 153 ML/MIN (>60); Globulin 3.0 g/dL (1.3-3.2); Glucose 93 mg/dl (74-100); Total Protein,Serum 7.9 g/dl (6.3-8.2)
[2025-06-17 21:08] LABS: Hemoglobin A1C 5.1 % (4.0-6.0)
[2025-06-17 21:12] LABS: Thyroid Stimulating Hormone 1.12 uIU/mL (0.465-4.68)
--- OUTSIDE RECORDS SUMMARY | 2025-06-19 08:37 | XMS_ITS | Patient Health Record ---
Author Organization [facility] Address [address] [facility] [address] [place] [phone] Care Team Providers Care Pre School Manager Name Role Phone Ghazala Montes De Oca [...] Vaccine Route Administration Date Status Comme nts Hep A- Pediatric IM Intramuscular 03/28/2018 Administered Hep A- Pediatric IM Intramuscular 10/17/2018 Administered Menactra IM Intramuscular 05/19/2015 Administered Menactra IM Intramuscular 10/20/2020 Administered Tetanus Tdap-Adacel (over 7yrs) IM Intramuscular 05/19/2015 Administered tuberculin (ppd) SC Subcutaneous 10/21/2021 Administered Varivax SC Subcutaneous 05/19/2015 Administered Problems Problem Type SNOMED Code ICD Code Onset Dates Problem Status W/U Status Risk Notes Problem Excessive and frequent menstruation (874669057) Menorrhagia with regular cycle (N92.0) Active confirmed Problem Allergic rhinitis (21362500) Seasonal allergic rhinitis due to other allergic trigger (J30.89) Active confirmed Plan Of Treatment No Information Insurance Providers Payer Name Payer Address Payer Phone Subscriber Number Group Number Insured Name Patient Relationship to Insured Coverage Start Date Coverage End Date [employer] [address] [place] [address] [id number] SWATHI GODWIN Child - Insured does not have Financial Responsibility (includes legally adopted child) Medications Administered Medication Instructions Date of Administration Dosage Notes Dexamethasone 03/08/2021 1 mL rocephin one gram IM 03/08/2021 1 g Medical (General) History Surgical History Surgery Date(Month/Year)
--- OUTSIDE RECORDS SUMMARY | 2025-06-19 08:37 | XMS_ITS | Clinical Summary ---
Author Organization [facility] Address [address] [place] [id number] Care Team Providers Care Emergency Department Name Role Phone Unavailable Primary Care Provider Unavailabl e Source Comments [facility] is fully rolled out with thefollowing exceptions:General Clinical Research [facility] Social History Tobacco Use Types Packs/Day Years [...] COVID-19 Vaccine (1 - 2023-2 5 season) 2025 AMB SEASONAL FLU VACCINE (#1) 08/15/2025 HIB [...]
--- OUTSIDE RECORDS SUMMARY | 2025-06-19 08:37 | XMS_ITS | Clinical Summary ---
Author Organization [facility] Address [address] [place] [address] Phone Care Team Providers Care Automatic Seamer Name Role Phone Steffany Bustamante APRN Primary Care Provider Anisa Pérez MD Unavailable [phone] Allergies No known active allergies Medications L-Norgest&E [...] Team Description 04/07/2025 Results Follow-Up SEP Diabetes [address] [address] Anisa Pérez MD TESTOSTERONE FREE, FEMALES/CHILDREN -REF LAB, TESTOSTERONE LEVEL TOTAL, DEHYDROEPIANDROSTERONE SULFATE 04/03/2025 Telephone [facility] [address] [place] [address] [place] [phone] Rosa Law MD Follow-up (To schedule allergy testing ) 04/01/2025 9:30 AM EDT Office Visit [facility] [address] [place] [address] Rosa Law MD Allergic rhinoconjunctivitis (Primary Dx); Hymenoptera allergy 03/31/2025 Travel 03/30/2025 11:34 AM EDT - 03/30/2025 11:59 PM EDT Hospital Encounter [facility] [address] [place] [address] Hirsutism Discharge Disposition: Home or Self Care 03/30/2025 10:45 AM EDT Office Visit [facility] [place] [address] [place] [address] Anisa Pérez MD Polycystic ovarian syndrome (Primary Dx); Hirsutism; Hyperhidrosis 03/30/2025 Travel from Last 3 Months Immunizations Immunization Administration [...] 04/01/2025 9:28 AM EDT Plan of Treatment Health Maintenance Due Date Last Done Comments Annual Wellness Exam 2007 HPV (1 - 3-dose series) 2019 Chlamydia Screening 2020 Meningococcal B Vaccine (1 of 2 - Standard) 2020 Cervical Cancer Screening 2025 Pap Smear 2025 DTaP/TDaP/Td (7 - Td or Tdap) 05/19/2025 05/19/2015, 05/14/2008, 11/03/2005, Additional history exists COVID-19 Vaccine (3 - 2024- season) 2025 11/07/2021, 10/13/2021 Influenza Vaccine (#1) 2025 08/11/2024 Hepatitis B [...] - 7.4 pg/mL 04/05/2025 3:15 PM EDT [employer] Comment: REFERENCE INTERVAL: Testosterone, Free by Gravure Press Operator Females Postmenopausal: 0.6 - 3.8 pg/mL INTERPRETIVE INFORMATION: Testosterone, Free by Gravure Press Operator Free testosterone concentration is calculated using total testosterone (measured by mass spectrometry) and the binding constant of testosterone and sex hormone-binding globulin (SHBG). For individuals on testosterone-suppressing hormone therapies (e.g., antiandrogens or estrogens), refer to cisgender female reference intervals. For a complete set of all established reference intervals, refer to ltd.[facility]/Tests/Pub/[id number]. This test was developed and its performance characteristics determined by [facility]. It has not been cleared or approved by the US Food and Drug Administration. This test was performed in a CLIA certified laboratory and is intended for clinical purposes. Performed By: [facility] [address] [place] [address] Train Brakeman: Roshan Perry MD, PhD CLIA Number: [id number] Blood VENOUS BLOOD / Unknown Venipuncture / Unknown 03/30/2025 11:42 AM EDT 03/30/2025 11:42 AM EDT Anisa Pérez MD CHEMISTRY ORDERABLES Final Re sult Performing Organization Address [facility]/ZIP Co de Phone Number [facility] [address] [place] [address] * DEHYDROEPIANDROSTERONE SULFATE (03/30/2025 11:42 AM EDT) Dhea Sulfate 174.00 148.00 - 407.00 mcg/dL 03/30/2025 3:04 PM EDT [facility] [email or web address] Blood VENOUS BLOOD / Unknown Venipuncture / Unknown 03/30/2025 11:42 AM EDT 03/30/2025 11:42 AM EDT Narrative [facility] [email or web address] - 03/30/2025 3:04 PM EDT Ingestion of florecita doses of biotin (>5 mg/day) taken within 8 hours of drawing blood sample can interfere with this immunoassay test. Anisa Pérez MD CHEMISTRY ORDERABLES Final Re sult Performing Organization Address City/[facility]/ZIP Co de Phone Number [facility] [address] [place] [address] , [place] [address] * TESTOSTERONE LEVEL TOTAL (03/30/2025 11:42 AM EDT) Testosterone Lvl 20 12 - 48 ng/dL 03/30/2025 3:07 PM EDT [facility] [email or web address] Blood VENOUS BLOOD / Unknown Venipuncture / Unknown 03/30/2025 11:42 AM EDT 03/30/2025 11:42 AM EDT Narrative [facility] - 03/30/2025 3:07 PM EDT Interpretation of total testosterone level for individuals on replacement therapy requires clinical correlation by the prescribing provider. Reference intervals and/or therapeutic targets in these individuals may vary. Ingestion of florecita doses of biotin (>5 mg/day) taken within 8 hours of drawing blood sample can interfere with this immunoassay test. us Anisa Pérez MD CHEMISTRY ORDERABLES Final Re sult [facility] [address] [facility] , [place] [address] from Last 3 Months Insurance ROBE PPO ANTHBALDEMAR PPO ANTHBALDEMAR PPO ANTHBALDEMAR PPO Care Teams Automatic Seamer Relationship Specialty Start Date End Date Steffany Bustamante APRN [facility] [address] [place] [address] PCP - General Nurse Practitioner 09/18/23 Anisa Pérez MD [address] [place] [address] Internal Medicine-Endocrinology, Diabetes & Metabolism 04/07/25
--- OUTSIDE RECORDS SUMMARY | 2025-06-19 08:37 | XMS_ITS | Patient Health Record ---
Author Organization [facility] Address [address] [place] [address] Care Team Providers Care Vegetable Ii Farmworker Name Role Phone Melisa Land Unavailable [phone] Allergies No Known Allergies Results Component Value [...] Orally Once a day Active Saline Nasal Maria Stein 0.65 % as directed Nasally 01/2025 Active [...] W/U Status Risk Notes Problem Allergic rhinitis (66345055) Allergic rhinitis (J30.9) Active confirmed Problem Overweight (852913307) Overweight (BMI 25.0-29.9) (E66.3) Active confirmed Vital Signs Temperature 97.3 degrees Fahrenheit 11/18/2024 Respiratory Rate 16 /min 11/18/2024 Blood pressure diastolic 72 mm Hg 11/18/2024 Height 68 in 11/18/2024 Blood pressure systolic 112 mm Hg 11/18/2024 Weight 194 lbs 11/18/2024 BMI 29.49 kg/m2 11/18/2024 Encounters Encounter Location Date Provider Diagnosis [id number] [address] 11/18/2024 Melisa Land Acute nasopharyngiti s J00 Assessments Encounter Date Diagnosis (ICD Code) Assessment Notes Treatment Notes Treatment Clinical Notes Section Notes 11/18/2024 Acute nasopharyngitis (ICD-10 - J00) Plan Of Treatment No Information Insurance Providers Payer Name Payer Address Payer Phone Subscriber Number Group Number Insured Name Patient Relationship to Insured Coverage Start Date Coverage End Date [facility] [address] [place] [address] [id number] El[address] Stanley Self - patient is the insured Medical (General) History Medical History History ICD Code seasonal allergies Surgical History Surgery Date(Month/Year) wisdom teeth 06/2024 Right Ovary Removed Sep 2023 Hospitalization History Reason Date(Month/Year) none
--- OUTSIDE RECORDS SUMMARY | 2025-06-19 08:37 | XMS_ITS | Encounter Summary ---
Author Organization [facility] [place] [address] Care Team Providers Care Kitchen Operator Name Role Phone Steffany Bustamante APRN Primary Care Provider [phone] Anisa Pérez MD Unavailable [phone] Encounter Details Date Type Department Care Team (Latest Contact Info) Description 04/07/2025 Results Follow-Up SEP Diabetes [address] [address] Anisa Pérez MD [address] [place] [address] TESTOSTERONE FREE, FEMALES/CHILDREN -REF LAB, TESTOSTERONE LEVEL [...] on filedocumented in this encounter Care Teams Kitchen Operator Relationship Specialty Start Date End Date Steffany Bustamante APRN [address] [facility] [address] [place] [address] PCP - General Nurse Practitioner 09/18/23 Anisa Pérez MD [address] [place] [address] Internal Medicine-Endocrinology, Diabetes & Metabolism 04/07/25 documented as of this encounter
--- OUTSIDE RECORDS SUMMARY | 2025-06-19 08:37 | XMS_ITS | Encounter Summary ---
Author Organization [facility] Address [address] [place] [address] Care Team Providers Care Machine Turner Name Role Phone Steffany Bustamante APRN Primary Care Provider [phone] Anisa Pérez MD Unavailable Reason for Visit * Reason Onset Date Comments Follow-up 04/03/2025 To schedule chele rgy testing Encounter Details Date Type Department Care Team (Late st Contact Info) Description 04/03/2025 Telephone [facility] [address] [address] Rosa Law MD [address] [place] [address] Follow-up (To schedule allergy testing ) [...] Patient canceled testing scheduled for 05/07/25 via [facility]. Called and left voicemail to inquire about [...] testing and duration: None listed Patients insurance/deductible: [place] $250 deposit required? no Deductible In Calendar Year -- $1,500.00 In Calendar Year -- $2,750.00 In Remaining -- $278.66 In Remaining -- $1,208.37 documented in this encounter Plan of Treatment Not on file documented as of this encounter Visit Diagnoses Not on filedocumented in this encounter Care Teams Machine Turner Relationship Specialty Start Date End Date Steffany Bustamante APRN [facility] [address] [place] [address] PCP - General Nurse Practitioner 09/18/23 Anisa Pérez MD [address] [place] [address] Internal Medicine-Endocrinology, Diabetes & Metabolism 04/07/25 documented as of this encounter
[2025-06-19 11:14] LABS: Testosterone,Total 15 ng/dL (13-71)
== END 2025-06-17 23:59 ==
LOC: LAB.DROPOF 06-19 08:16
PROVIDERS: PCP Obstetrics & Gynecology; Visit Provider Obstetrics & Gynecology
DX: E28.2 Polycystic ovarian syndrome (principal); N80.9 Endometriosis, unspecified; R61 Generalized hyperhidrosis
CPT/HCPCS: 80053; 83036; 84146; 84403; 84443; 85025

== ENCOUNTER 2025-06-26 11:44 | Outpatient (CLI) | payer BC, SELFPAY ==
--- OUTSIDE RECORDS SUMMARY | 2006-03-07 | XMS_ITS | Encounter Summary ---
Author Organization [facility] Address [address] [place] [address] Care Team Providers Care Assembler Radio And Electrical Name Role Phone Unavailable Primary Care Provider Unavailabl e Encounter Details Date Type Department Care Team (Late st Contact Info) Description 03/07/2006 Hospital Encounter [facility] Division of Otolaryngology [address] [place] [phone] Social History Tobacco Use Types Packs/Day [...]
--- OUTSIDE RECORDS SUMMARY | 2006-06-27 | XMS_ITS | Encounter Summary ---
Author Organization [facility] Address [address] [place] [address] Care Team Providers Care Microfilm Mounter Name Role Phone Unavailable Primary Care Provider Unavailabl e Encounter Details Date Type Department Care Team (Late st Contact Info) Description 06/27/2006 Hospital Encounter [facility] Division of Otolaryngology [address] [place] [phone] Social History Tobacco Use Types Packs/Day [...]
[2025-06-26 08:49] VITALS: BMI 29.6
--- OUTSIDE RECORDS SUMMARY | 2025-06-26 11:47 | XMS_ITS | Encounter Summary ---
Author Organization [place] [place] [address] Care Team Providers Care Overnight Cashier Name Role Phone Steffany Bustamante APRN Primary Care Provider [phone] Anisa Pérez MD Unavailable [phone] Encounter Details Date Type Department Care Team (Latest Contact Info) Description 04/07/2025 Results Follow-Up SEP Diabetes [address] [address] Anisa Pérez MD [address] [place] [address] TESTOSTERONE FREE, FEMALES/CHILDREN -REF LAB, TESTOSTERONE LEVEL [...] on filedocumented in this encounter Care Teams Overnight Cashier Relationship Specialty Start Date End Date Steffany Bustamante APRN [address] [facility] [address] [place] [address] PCP - General Nurse Practitioner 09/18/23 Anisa Pérez MD [address] [place] [address] Internal Medicine-Endocrinology, Diabetes & Metabolism 04/07/25 documented as of this encounter
--- OUTSIDE RECORDS SUMMARY | 2025-06-26 11:47 | XMS_ITS | Clinical Summary ---
Author Organization [facility] Address [address] [place] [address] Phone Care Team Providers Care Advertising Production Manager Name Role Phone Steffany Bustamante APRN Primary Care Provider [phone] Anisa Pérez MD Unavailable [phone] Allergies No known active allergies Medications L-Norgest&E [...] Team Description 04/07/2025 Results Follow-Up SEP Diabetes [address] [address] Anisa Pérez MD TESTOSTERONE FREE, FEMALES/CHILDREN -REF LAB, TESTOSTERONE LEVEL TOTAL, DEHYDROEPIANDROSTERONE SULFATE 04/03/2025 Telephone [facility] [address] [place] [address] [place] [phone] Rosa Law MD Follow-up (To schedule allergy testing ) 04/01/2025 9:30 AM EDT Office Visit [facility] [address] [place] [address] Rosa Law MD Allergic rhinoconjunctivitis (Primary Dx); Hymenoptera allergy 03/31/2025 Travel 03/30/2025 11:34 AM EDT - 03/30/2025 11:59 PM EDT Hospital Encounter [facility] [address] [place] [address] Hirsutism Discharge Disposition: Home or Self Care 03/30/2025 10:45 AM EDT Office Visit [facility] Diabetes [place] [address] [place] [address] Anisa Pérez MD Polycystic ovarian syndrome (Primary [...] - 7.4 pg/mL 04/05/2025 3:15 PM EDT [employer] Comment: REFERENCE INTERVAL: Testosterone, Free by Physical Therapy Resident Females Postmenopausal: 0.6 - 3.8 pg/mL INTERPRETIVE INFORMATION: Testosterone, Free by Physical Therapy Resident Free testosterone concentration is calculated using total testosterone (measured by mass spectrometry) and the binding constant of testosterone and sex hormone-binding globulin (SHBG). For individuals on testosterone-suppressing hormone therapies (e.g., antiandrogens or estrogens), refer to cisgender female reference intervals. For a complete set of all established reference intervals, refer to ltd[employer]/Tests/Pub/[id number]. This test was developed and its performance characteristics determined by [facility]. It has not been cleared or approved by the US Food and Drug Administration. This test was performed in a CLIA certified laboratory and is intended for clinical purposes. Performed By: [facility] [address] [place] [address] Transmission Builder: Roshan Perry MD, PhD CLIA Number: [id number] Blood VENOUS BLOOD / Unknown Venipuncture / Unknown 03/30/2025 11:42 AM EDT 03/30/2025 11:42 AM EDT Anisa Pérez MD CHEMISTRY ORDERABLES Final Re sult Performing Organization Address [facility]/ZIP Co de Phone Number [employer] [address] [place] [address] * DEHYDROEPIANDROSTERONE SULFATE (03/30/2025 11:42 AM EDT) Dhea Sulfate 174.00 148.00 - 407.00 mcg/dL 03/30/2025 3:04 PM EDT [facility] [email or web address] Blood VENOUS BLOOD / Unknown Venipuncture / Unknown 03/30/2025 11:42 AM EDT 03/30/2025 11:42 AM EDT Narrative [facility] [email or web address] - 03/30/2025 3:04 PM EDT Ingestion of florecita doses of biotin (>5 mg/day) taken within 8 hours of drawing blood sample can interfere with this immunoassay test. Anisa Pérez MD CHEMISTRY ORDERABLES Final Re sult Performing Organization Address City/[facility]/ZIP Co de Phone Number [facility] [address] [place] [address] , [place] [address] * TESTOSTERONE LEVEL TOTAL (03/30/2025 11:42 AM EDT) Testosterone Lvl 20 12 - 48 ng/dL 03/30/2025 3:07 PM EDT [facility] [email or web address] Blood VENOUS BLOOD / Unknown Venipuncture / Unknown 03/30/2025 11:42 AM EDT 03/30/2025 11:42 AM EDT Narrative [facility] - 03/30/2025 3:07 PM EDT Interpretation of total testosterone level for individuals on replacement therapy requires clinical correlation by the prescribing provider. Reference intervals and/or therapeutic targets in these individuals may vary. Ingestion of florecita doses of biotin (>5 mg/day) taken within 8 hours of drawing blood sample can interfere with this immunoassay test. us Anisa Pérez MD CHEMISTRY ORDERABLES Final Re sult [facility] [address] [facility] , [place] [address] from Last 3 Months Insurance [employer] PPO ANTHBALDEMAR PPO ANTHBALDEMAR PPO ANTHBALDEMAR PPO Care Teams Advertising Production Manager Relationship Specialty Start Date End Date Steffany Bustamante APRN [facility] [address] [place] [address] PCP - General Nurse Practitioner 09/18/23 Anisa Pérez MD [address] [place] [address] Internal Medicine-Endocrinology, Diabetes & Metabolism 04/07/25
--- OUTSIDE RECORDS SUMMARY | 2025-06-26 11:47 | XMS_ITS | Clinical Summary ---
Author Organization [facility] Address [address] [place] [address] Care Team Providers Care Pan Pusher Name Role Phone Unavailable Primary Care Provider Unavailabl e Source Comments [facility] is fully rolled out with thefollowing exceptions:General Clinical Research [facility] Social History Tobacco Use Types [...] of 3 - 19+ 3-dose series) 2023 AMB SEASONAL FLU VACCINE (#1) 06/15/2025 COVID-19 Vaccine (1 - 2023-2 5 season) 2025 HIB IMMUNIZATION Aged Out No longer e [...]
--- OUTSIDE RECORDS SUMMARY | 2025-06-26 11:47 | XMS_ITS | Encounter Summary ---
Author Organization [facility] Address [address] [place] [address] Care Team Providers Care Table Hand Name Role Phone Steffany Bustamante APRN Primary Care Provider [phone] Anisa Pérez MD Unavailable [phone] Reason for Visit * Reason Onset Date Comments Follow-up 04/03/2025 To schedule chele rgy testing Encounter Details Date Type Department Care Team (Late st Contact Info) Description 04/03/2025 Telephone [facility] [address] [phone] Rosa Law MD [address] [place] [address] Follow-up (To schedule allergy testing ) [...] Patient canceled testing scheduled for 05/07/25 via [facility]. Called and left voicemail to inquire about [...] testing and duration: None listed Patients insurance/deductible: [place] $250 deposit required? no Deductible In Calendar Year -- $1,500.00 In Calendar Year -- $2,750.00 In Remaining -- $278.66 In Remaining -- $1,208.37 documented in this encounter Plan of Treatment Not on file documented as of this encounter Visit Diagnoses Not on filedocumented in this encounter Care Teams Table Hand Relationship Specialty Start Date End Date Steffany Bustamante APRN [facility] [address] [place] [address] PCP - General Nurse Practitioner 09/18/23 Anisa Pérez MD [address] [place] [address] Internal Medicine-Endocrinology, Diabetes & Metabolism 04/07/25 documented as of this encounter
[2025-06-26 12:19] LABS: Hematocrit 39.7 % (37.0-47.0); Hemoglobin 13.4 g/dL (12.2-16.2); Immature Granulocytes % 0.2 %; Mean Corpuscular HGB Conc 33.8 g/dL (31.8-35.4); Mean Corpuscular Hemoglobin 29.4 pg (27.0-31.2); Mean Corpuscular Volume 87.1 fl (81-99); Nucleated Red Blood Cells % 0 %; Platelet Count 309 K/mm3 (142-424); Red Blood Count 4.56 M/mm3 (4.20-5.40); Red Cell Distribution Width-SD 38.8 fL; White Blood Count 5.5 K/mm3 (4.8-10.8)
[2025-06-26 12:42] LABS: Alanine Aminotransferase 19 U/L (12-78); Albumin Level 4.5 g/dl (3.5-5.0); Albumin/Globulin Ratio 1.4 (1.1-1.8); Alkaline Phosphatase 60 U/L (38-126); Anion Gap 13.9 mEq/L (5-15); Aspartate Amino Transferase 26 U/L (14-36); Bilirubin,Total 0.4 mg/dl (0.2-1.3); Blood Urea Nitrogen 11 mg/dl (7-17); Calcium 9.3 mg/dl (8.4-10.2); Carbon Dioxide 22 mmol/L (22.0-30.0); Chloride 106 mmol/L (98-107); Creatinine Clearance Estimated 207 mL/min (50-200); Creatinine,Serum 0.60 mg/dl (0.52-1.04); Estimated Glomerular Filt Rate 126 ml/min (>60); GFR (African American) 153 ML/MIN (>60); Globulin 3.2 g/dL (1.3-3.2); Glucose 94 mg/dl (74-100); Potassium 3.9 mmoL/L (3.5-5.1); Sodium 138 mmol/L (136-145); Total Protein,Serum 7.7 g/dl (6.3-8.2)
[2025-06-26 18:21] LABS: HCG Qualitative, Serum Negative (Negative)
== END 2025-06-26 23:59 | disposition home or self-care (01) ==
LOC: PREOP 11:45
PROVIDERS: PCP Nurse Practitioner; Visit Provider Obstetrics & Gynecology
DX: Z01.812 Encounter for preprocedural laboratory examination (principal)
CPT/HCPCS: 80053; 84703; 85025

== ENCOUNTER 2025-07-01 07:45 | Day surgery (SDC) | payer BC, SELFPAY ==
[2025-06-26 12:05] VITALS: BMI 29.6
[2025-07-01] VITALS (11 sets, daily range): BP systolic 122–156; BP diastolic 60–89; PULSE 89–135; RESP 16–18; TEMP 36.3–38; O2SAT 97–100
[2025-07-01] MEDS: LACTATED RINGERS 1000ML 1,000 ML 25 ML IV (08:14)
[2025-07-01 08:52] LABS: HCG Qualitative, Serum Negative (Negative)
[2025-07-01] MEDS: SODIUM CHLORIDE IRRIG SOLUTION 3,000 ML 100 ML IR (09:51)
--- NOTE | 2025-07-01 10:44 | EXP.ANES.I ---
[facility] Anesthesia Record Part I Anesthesia Record I Intake, IV Amount: 1,500 Hydration: Adequate Estimated blood loss (mL): 0 Urine output (mL): 50 Blood Pressure: 135/87 SaO2: 98 Pulse Rate: 120 Airway Patency: Patent Respiratory Rate: 18 Temperature: 97.8 F Patient is:: Awake and Stable Stable to PACU at:: 10:40
[2025-07-01] MEDS: MORPHINE 2MG/ML SYRINGE 2 MG IV (11:01)
--- NOTE | 2025-07-01 11:17 | P.OP_ITS ---
Date of procedure: 07/01/25 Pre-op Diagnosis:: 1. Pelvic pain 2. Abnormal uterine bleeding 3. TVUS suspicious for endometrial polyp 4. History of laparoscopy proven endometriosis 5. Desires IUD Post-op Diagnosis:: 1. Pelvic pain 2. Abnormal uterine bleeding 3. TVUS suspicious for endometrial polyp 4. History of laparoscopy proven endometriosis 5. Desires IUD Procedure performed:: 1. Dilation and diagnostic hysteroscopy 2. Diagnostic laparoscopy 3. Peritoneal biopsy 4. IUD insertion Surgeon:: Ni Connolly DO SENIOR WINDOWS ENGINEER:: Bairon Gamez Anesthesia: GETA Estimated blood loss (mL): 5 Operative findings:: Findings: -EUA revealed an 8-week anteverted uterus with regular contour. No significant prolapse or support defects noted. -Hysteroscopy revealed smooth endometrial lining without any polyps. Along cervical canal. Tubal ostia visualized. No fibroids or abnormalities noted. Operative note:: The patient was taken back to the OR where general anesthesia was obtained.? She was placed in the dorsal lithotomy position using yellow fin stirrups and sterilely prepped and draped in the usual fashion.? An in and out catheter was used to drain her bladder.? A timeout was performed.? A weighted speculum was used to visualize this cervix, a single-tooth tenaculum was applied to the anterior lip of the cervix. The cervix was only slightly dilated to allow entry to the ectocervix and hydrodisection was used to get the scope the rest of the way into the cavity. The hysterscope was inserted, tubal ostia visualized. Smooth endometrial lining without polyps, fibroids, or defects. Uterine manipulator was placed and attention was turned to the abdominal portion of the case 10mL of Neuropin was injected infraumbilically and a scalpel was used to make a 5 mm infraumbilical incision with the assistance from a hemostat. The skin was tented and Optiview blunt trocar was introduced into the abdomen in the usual fashion. CO2 gas was connected with an initial pressure of 6 mmHg noted. Pneumoperitoneum was created to a pressure of 15 mmHg. The laparoscopic camera was inserted and a quick survey of the abdomen revealed grossly normal anatomy. The uterus appeared to be anteverted with a normal size shape and contour. The patient was placed in Trendelenburg. 10mLs of local anesthetic was injected and a 5mm incision was then made in the left lower quadrant with careful attention to avoid the rectus muscles and vasculature and under direct laparoscopic visualization a blunt trocar was introduced into the abdominal cavity. A full pelvic scan was completed screening for endometriosis of the remaining left ovary and no clear endometriosis lesions on the ovary or fallopian tube. The ovarian fossa was evaluated and no lesions of endometriosis was noted noted on the left side. There was a lesion suspicious for endometriosis in the posterior cul-de-sac which was removed and sent for biopsy it was removed and segments and gelatinous and I have concerns that it destroyed the specimen. Working the way around evaluating the bilateral uterosacral ligaments no definitive lesions of endometriosis noted. There was some scarring on the right uterosacral ligament which was suspicious for a past endometriosis lesion. The right ovary and fallopian tube were surgically absent. There were some scarring suspicious for endometriosis and adhesions if this is for endometriosis outside of the pelvic brim. The ureters were visualized bilaterally with ease. Pneumoperitoneum reduced, and all ports removed. The 2 abdominal incisions were closed with a single simple interrupted suture using 4-0 Monocryl. Dermabond was applied to each skin incision. The uterine manipulator was removed. The uterus sounded to 8 cm and the IUD was inserted with ease. The strings were trimmed to 3 cm. All instruments were removed from the vagina. All counts were correct x2, per nursing. The patient was extubated, stable, and transferred to the PACU. She will be discharged after meeting all DC criteria to include voiding, ambulating and tolerating PO independently. Condition: stable Disposition: PACU Specimens:: Peritoneal biopsy Complications:: None
--- NOTE | 2025-07-01 15:21 | EXP.ANES.II ---
[facility] Anesthesia Record Part II Anesthesia Record Part II Discharge Time: 11:45 Destination: Surgical Day Care (OP Surgery) PACU nurse assessment reviewed?: Yes Patient Condition:: Good Anesthesia Complications:: None Swallowing reflex intact?: Yes Airway Patency: Patent Cyanosis?: No Blood Pressure: 156/89 SaO2: 97 Respiratory Rate: 18 Pulse Rate: 91 Temperature: 97.4 F Mental Status: Alert & Oriented Pain level:: 3 Nausea and/or vomitting:: None Intake, IV Amount: 0 Hydration: Adequate
== END 2025-07-01 12:25 | disposition home or self-care (01) ==
PROVIDERS: PCP Nurse Practitioner; Visit Provider Obstetrics & Gynecology
PROC: 0UDB8ZZ Extraction of Endometrium, Via Natural or Artificial Opening Endoscopic (ICD-10-PCS; CPT 58558; principal; 2025-07-01 09:15)
DX: R10.2 Pelvic and perineal pain (principal); N93.9 Abnormal uterine and vaginal bleeding, unspecified; Z87.898 Personal history of other specified conditions; Z30.430 Encounter for insertion of intrauterine contraceptive device; E28.2 Polycystic ovarian syndrome
CPT/HCPCS: 49321; 58300; 58555; 84703; J1100; J1885; J2003; J2250; J2270; J2405; J2704; J2795; J3010; J7120

== ENCOUNTER 2025-07-03 08:08 | Emergency (ER) | payer BC, SELFPAY ==
--- OUTSIDE RECORDS SUMMARY | 2006-03-07 | XMS_ITS | Encounter Summary ---
Author Organization [facility] Address [address] [place] [address] Care Team Providers Care Sheep Rancher Name Role Phone Unavailable Primary Care Provider Unavailabl e Encounter Details Date Type Department Care Team (Late st Contact Info) Description 03/07/2006 Hospital Encounter [facility] Division of Otolaryngology [address] [place] [phone] Social History Tobacco Use Types Packs/Day Years Used Date Smoking Tobacco: Never Assessed Comments Unknown Sex and Gender Information Value Date Recorded Sex Assigned at Not on file Legal Sex Female 5:19 AM EST Gender Identity Not on file Sexual Orientation Not on file documented as of this encounter Plan of Treatment Not on file documented as of this encounter Visit Diagnoses Not on filedocumented in this encounter
--- OUTSIDE RECORDS SUMMARY | 2006-06-27 | XMS_ITS | Encounter Summary ---
Author Organization [facility] Address [address] [place] [address] Care Team Providers Care Manager Fleet Name Role Phone Unavailable Primary Care Provider Unavailabl e Encounter Details Date Type Department Care Team (Late st Contact Info) Description 06/27/2006 Hospital Encounter [facility] Division of Otolaryngology [address] [place] [phone] Social History Tobacco Use Types Packs/Day [...]
[2025-07-03 08:15] VITALS: BP 144/89; PULSE 93; RESP 17; TEMP 36.5; O2SAT 100; BMI 29.6
[2025-07-03 08:30] VITALS: BP 126/108; PULSE 90; RESP 17; O2SAT 99
--- NOTE | 2025-07-03 08:36 | CT_ITS ---
FINAL REPORT TECHNIQUE: IV contrast enhanced exam This study was performed with techniques to keep radiation doses as low as reasonably achievable, (ALARA). Individualized dose reduction techniques using automated exposure control or adjustment of mA and/or kV according to the patient''s size were employed. CLINICAL HISTORY: LLQ abd pain and fever, 2 days post op COMPARISON: none FINDINGS: Abdomen: No acute density is seen within the lung bases. The gallbladder is unremarkable. Solid abdominal organs are unremarkable. No bowel obstruction is present. There is no free air. No fluid collection is seen. There is no adenopathy. Pelvis: The appendix is normal. No bowel wall thickening is present. The uterus is displaced to the left is a normal variant with IUD present. No evidence of ovarian mass. There is no free fluid. IMPRESSION: No bowel obstruction, significant inflammatory changes, or abscess identified. Reviewed, Interpreted and Dictated by Aaliyah Gonsalez MD Transcribed by Odette Parsons Authenticated and [facility]
--- OUTSIDE RECORDS SUMMARY | 2025-07-03 08:38 | XMS_ITS | Clinical Summary ---
Author Organization [facility] Address [address] [place] [id number] Care Team Providers Care Prime Minister Name Role Phone Unavailable Primary Care Provider Unavailabl e Source Comments [facility] is fully rolled out with thefollowing exceptions:General Clinical Research [facility] Social History Tobacco Use Types Packs/Day Years [...]
--- NOTE | 2025-07-03 08:41 | HMH.EDGENADL ---
Discharge Plan Disposition Patient Disposition: Home, Self-Care Prescriptions Prescriptions: No Action acetaminophen 500 mg tablet 500 mg PO Q6H PRN (Reason: fever or pain) Qty: 30 3RF ibuprofen 800 mg tablet 800 mg PO Q8H PRN (Reason: pain) Qty: 60 2RF simethicone 125 mg tablet 125 mg PO DAILY PRN (Reason: abdominal distention) Qty: 60 2RF oxycodone 5 mg tablet 5 mg PO Q8H PRN (Reason: pain) Qty: 5 0RF Referrals Follow up/Referrals: Steffany Bustamante APRN [Primary Care Provider, Family Practice] - See instructions Activity Restrictions/Add. Instructions Additional Instructions/Restrictions: No evidence of any postoperative complication specifically no evidence of any intra-abdominal complication associated with your surgery that would be causing pain fever etc. I suspect the majority of your discomfort is normal post IUD insertional discomfort. No evidence of sepsis or any other systemic infection or signs of infection from a history of physical or diagnostic standpoint. You may follow-up with your surgeon or your primary care doctor as previously instructed. Clinical Impressions Clinical Impression: Postoperative fever, Abdominal pain Print Language Print Language: [place] Discharge ED Provider: Terri Caceres General Adult HPI General Chief complaint: PAIN Stated complaint: post op 07/01, fever on left side of face Time Seen by Provider: 07/03/25 08:30 Mode of Arrival: Ambulatory Source of Information: Patient Description of Symptoms (Recalled from ER Triage Doc. by RN): Patient presents to ED wih c/o feeling lefther left arm and the left side of her face are hot but not the right. Patient states she had surgery on Sun for IUD placement and removal of endometriosis. Patient also c/o pelvic pain. History of Present Illness HPI narrative: Patient is a 20-year-old female with a history of PCOS also had surgical removal of her right ovary and fallopian tube secondary to ovarian torsion in the past and also has had endometriosis followed by outpatient [facility] . Here recently had a hysteroscopy with some biopsies and IUD placement 2 days ago on the presents today with worsening abdominal pain fevers chills and sweats. Tmax 101 at home. She did take some antipyretics late last night but nothing today. Complains of pretty severe pain predominantly in her left lower abdominal quadrant. Incisions look good she states from historical standpoint. No vaginal discharge. Of note she does state that the warm feeling or sensation is only in the left side of her body but she did feel systemically ill and she took her temperature. Of note she has had some congestion and a sore throat that happened right around the time of her surgery as well. Related Data Previous Rx's ?Medication ?Instructions ?Recorded acetaminophen 500 mg tablet 500 mg PO Q6H PRN fever or pain 07/01/25 #30 tabs ibuprofen 800 mg tablet 800 mg PO Q8H PRN pain #60 tabs 07/01/25 oxycodone 5 mg tablet 5 mg PO Q8H PRN pain #5 tabs 07/01/25 simethicone 125 mg tablet 125 mg PO DAILY PRN abdominal 07/01/25 distention #60 tabs Allergies Allergy/AdvReac Type Severity Reaction Status Date / Time No Known Allergies Allergy Verified 06/26/25 11:21 [facility] Disclaimer: The information contained in this section may have been updated after the patient was seen, as this information can be updated by other users. Medical History PCOS (polycystic ovarian syndrome) Hyperhidrosis Allergic rhinitis Encounter for surveillance of contraceptive pills Dysmenorrhea Abnormal menstrual periods Surgical History History of wisdom tooth extraction History of right oophorectomy Social History (Updated 07/01/25 @ 07:59 by Annette Dunn RN) Smoking Status: Never smoker alcohol intake: never current occupational status: employed Travel in the last 8 weeks?: None Have you lived/traveled outside [place] in past 30 days?: No Contact w/someone who lives/traveled outside US past 30 days?: No Exposure to someone with infectious disease in past 14 days?: No Do you have a fever (greater than 100.4 F or 38 C)?: No Have you tested positive for COVID-19?: No Exposed to someone with COVID-19 in past 14 days?: No Do you have a sore throat?: No Do you have a cough?: No Do you have any weakness?: No Do you have any diarrhea?: No Are you experiencing any unusual bleeding?: No Do you have any muscle aches/pain?: No Do you have any abdominal pain?: No Are you experiencing loss of taste or smell?: No Other Medical History Have you received the Flu Vaccine for this season: No Have you received the Pneumonia Vaccine: No ROS Obtained: Yes All systems reviewed & no additional complaints except as documented Physical Exam General General appearance: alert and in no apparent distress ENT ENT exam: Present normal oropharynx Respiratory Respiratory exam: Present normal lung sounds bilaterally and respiratory distress Cardiovascular Cardiovascular exam: Present regular rate and normal rhythm Abdominal Exam Abdominal exam: Present soft and tenderness (Significant tenderness in suprapubic and left lower quadrants no rebound or guarding incision sites look clean dry and intact); Absent distention Neurological Exam Neurological exam: Present alert and oriented X3 Medical Decision Making Medical Records Screening: Per USPSTF and CDC recommendations, given the prevalence of disease in our region, it is our hospital?s policy to screen for HIV and viral Hepatitis for all patients aged 18 and over and those with ongoing risk factors. Issac Inquiry Pt receiving controlled substance: No Vital Signs: 07/03/25 08:15 07/03/25 08:30 07/03/25 09:00 Temperature 97.7 F Temperature Source Oral Pulse Rate 90 84 Pulse Rate [Left] 93 H Respiratory Rate 17 17 17 Blood Pressure 126/108 H 130/89 Blood Pressure [Right Arm] 144/89 H Blood Pressure Mean 112 102 Blood Pressure Mean [Right Arm] 107 Blood Pressure Source [Right Arm] Automatic Cuff Blood Pressure Position [Right Arm] Supine 02 Sat by Pulse Oximetry 100 99 99 Oxygen Delivery Method Room Air Room Air Room Air 07/03/25 10:00 07/03/25 10:30 Temperature Temperature Source Pulse Rate 62 64 Pulse Rate [Left] Respiratory Rate Blood Pressure 110/82 104/71 L Blood Pressure [Right Arm] Blood Pressure Mean Blood Pressure Mean [Right Arm] Blood Pressure Source [Right Arm] Blood Pressure Position [Right Arm] 02 Sat by Pulse Oximetry 100 99 Oxygen Delivery Method Lab Data Lab results reviewed: Yes I reviewed the patient's lab results. Lab Results 07/03/25 08:49: WBC 7.2, RBC 4.43, Hgb 13.0, Hct 39.6, MCV 89.4, MCH 29.3, MCHC 32.8, RDW 12.6, Plt Count 276, MPV 9.3, Neut % (Auto) 44.6, Lymph % (Auto) 44.2, [place] % (Auto) 6.4, Eos % (Auto) 3.9, Baso % (Auto) 0.6, Neut # (Auto) 3.2, Lymph # (Auto) 3.2, [place] # (Auto) 0.5, Eos # (Auto) 0.3, Baso # (Auto) 0.0, Sodium 139, Potassium 3.9, Chloride 104, Carbon Dioxide 23, Anion Gap 15.9 H, BUN 12, Creatinine 0.70, Estimated Creat Clear 178, Estimated GFR 106, Est GFR ( Amer) 128, Glucose 91, Lactate 1.9, Calcium 9.1, Total Bilirubin 0.4, AST 37 H, ALT 19, Alkaline Phosphatase 54, Total Protein 7.2, Albumin 4.2, Globulin 3.0, Albumin/Globulin Ratio 1.4, Serum HCG, Qual Negative 07/03/25 08:52: Urine Color Yellow, Urine Appearance Clear, Urine pH 6.0, Ur Specific [place] 1.010, Urine Protein Negative, Urine Glucose (UA) Negative, Urine Ketones Negative, Urine Blood Negative, Urine Nitrate Negative, Urine Bilirubin Negative, Urine Urobilinogen 0.2, Ur Leukocyte Esterase Negative, Urine RBC None, Urine WBC None, Ur Squamous Epith Cells 3-5, Urine Bacteria None 07/03/25 08:54: SARS-CoV-2 (PCR) Not detected, Influenza A Untype (PCR) Not detected, Influenza Type B (PCR) Not detected 07/03/25 08:49 07/03/25 08:49 Orders (Tests/Meds): ED MEDICATIONS Generic Name Dose Route Start Last Admin Trade Name Freq PRN Reason Stop Dose Admin Sodium Chloride 10 ml 07/03/25 09:24 07/03/25 09:25 Sodium Chloride 0.9% 10ml Syr (Rad Only) IV 08/02/25 09:23 10 ml NEEDED PRN Administration Maintain IV Site Discontinued Medications Generic Name Dose Route Start Last Admin Trade Name Freq PRN Reason Stop Dose Admin Lactated Ringer's 1,000 mls @ 999 mls/hr 07/03/25 08:45 07/03/25 10:03 Lactated Ringer's 1000 Ml Bag IV 07/03/25 09:45 Infused .Q1H1M NAN Infusion Iopamidol 75 ml 07/03/25 09:24 07/03/25 09:25 Iopamidol-370 (76%);100ml Bottle IV 07/03/25 09:25 75 ml ONCE ONE Administration Morphine Sulfate 4 mg 07/03/25 08:36 07/03/25 09:01 Morphine 4mg/Ml Syringe IV 07/03/25 08:37 4 mg ONCE ONE Administration Ondansetron HCl 4 mg 07/03/25 08:36 07/03/25 09:01 Ondansetron 4mg/2ml Vial IV 07/03/25 08:37 4 mg ONCE ONE Administration ORDERS Category Date Time Status CT abdomen pelvis w con Stat Cat Scan 07/03/25 08:36 Completed CBC w/Auto Diff [Complete Blood Count Auto Diff] Stat Lab 07/03/25 08:49 Completed CMP [Comprehensive Metabolic Panel] Stat Lab 07/03/25 08:49 Completed HCG Qualitative, Serum Stat Lab 07/03/25 08:49 Completed Lactic Acid Stat Lab 07/03/25 08:49 Completed Rapid PCR Covid and Flu A/B Stat Lab 07/03/25 08:54 Completed Strep Scrn Group A (Rapid) Stat Lab 07/03/25 08:39 Ordered UA [Urinalysis and Microscopic] Stat Lab 07/03/25 08:52 Completed Blood Culture Stat Micro 07/03/25 Received Medical Decision Narrative: 20-year-old presented today 2 days postop from hysteroscopy and IUD placement presents today with worsening abdominal discomfort as well as a fever at home. She also had some congestion and sore throat. Is possible she has an upper respiratory infection or strep and normal postoperative abdominal discomfort however intra-abdominal infections and postoperative infection certainly on the differential as well. Will get a contrasted CT scan to evaluate for possible abscess, perforation, etc. Reassessment 1041 patient remains very stable vitals are stable no evidence of any tachycardia labs also do not demonstrate any leukocytosis. Patient is afebrile has not had any antipyretics today. No evidence of sepsis. CT scan was performed which I personally interpreted which shows no intra-abdominal pathology specifically IUD is in place no stranding surrounding this or any evidence of abscess or perforation. COVID and flu are negative. Patient refused her strep swab. Still possible she has strep pharyngitis but unlikely her exam is relatively normal aside from the throat discomfort. Nonetheless no emergent medical condition identified specifically no postoperative complication she is very well-appearing on discharge. She will follow-up outpatient with her primary care doctor or her [facility] [employer] [employer] and return with any worsening of her symptoms. Critical Care Critical Care Time Critical Care Time: Yes Attestation: On 07/03/25, the high probability of a clinically significant, sudden or life threatening deterioration of the following system(s) required my full and direct attention, intervention and personal management. The time I documented below is in addition to time spent performing reported procedures but includes the following listed in this critical care notation. Total Time Total Critical Care Time: 35
[2025-07-03 08:57] LABS: Hematocrit 39.6 % (37.0-47.0); Hemoglobin 13.0 g/dL (12.2-16.2); Immature Granulocytes % 0.3 %; Mean Corpuscular HGB Conc 32.8 g/dL (31.8-35.4); Mean Corpuscular Hemoglobin 29.3 pg (27.0-31.2); Mean Corpuscular Volume 89.4 fl (81-99); Nucleated Red Blood Cells % 0 %; Platelet Count 276 K/mm3 (142-424); Red Blood Count 4.43 M/mm3 (4.20-5.40); Red Cell Distribution Width-SD 41.2 fL; White Blood Count 7.2 K/mm3 (4.8-10.8)
[2025-07-03 08:57] LABS: Microscopic, Urine URINE MICROSCOPIC (MICROSCOPIC)
[2025-07-03 08:59] LABS: Coronavirus 19, PCR Not Detected (NotDetected); Influenza A, PCR Not Detected (NotDetected); Influenza B, PCR Not Detected (NotDetected)
[2025-07-03 09:00] VITALS: BP 130/89; PULSE 84; RESP 17; O2SAT 99
[2025-07-03] MEDS: LACTATED RINGERS 1000ML 1,000 ML 999 ML IV (09:00)
[2025-07-03] MEDS: ONDANSETRON 4MG/2ML VIAL 4 MG IV (09:01)
[2025-07-03] MEDS: MORPHINE 4MG/ML SYRINGE 4 MG IV (09:01)
[2025-07-03 09:03] LABS: HCG Qualitative, Serum Negative (Negative)
[2025-07-03 09:11] LABS: Bilirubin,Urine Negative (Negative); Color,Urine YELLOW (Yellow); Glucose,Urine (UA) Negative (Negative); Ketones,Urine Negative (Negative); Leukocyte Esterase,Urine Negative (Negative); PH,Urine 6.0 (5.0-8.5); Protein,Urine Negative (Negative); Specific Gravity, Urine 1.010 (1.005-1.030); Urobilinogen,Urine 0.2 EU/dl (0.2)
--- NOTE | 2025-07-03 09:23 | PC.NURSE ---
Patient refused strep swab, Dr. Caceres notified.
[2025-07-03] MEDS: SODIUM CHLORIDE 0.9% 10ML SYR (RAD ONLY) 10 ML IV (09:25)
[2025-07-03] MEDS: IOPAMIDOL-370 (76%);100ML BOTTLE 75 ML IV (09:25)
[2025-07-03 10:00] VITALS: BP 110/82; PULSE 62; O2SAT 100
[2025-07-03 10:30] VITALS: BP 104/71; PULSE 64; O2SAT 99
[2025-07-03 10:35] LABS: Albumin Level 4.2 g/dl (3.5-5.0); Chloride 104 mmol/L (98-107); Potassium 3.9 mmoL/L (3.5-5.1); Sodium 139 mmol/L (136-145)
[2025-07-03 10:37] LABS: Blood Urea Nitrogen 12 mg/dl (7-17); Creatinine Clearance Estimated 178 mL/min (50-200); Creatinine,Serum 0.70 mg/dl (0.52-1.04); Estimated Glomerular Filt Rate 106 ml/min (>60); GFR (African American) 128 ML/MIN (>60)
[2025-07-03 10:38] LABS: Alanine Aminotransferase 19 U/L (12-78); Albumin/Globulin Ratio 1.4 (1.1-1.8); Alkaline Phosphatase 54 U/L (38-126); Anion Gap 15.9 mEq/L (5-15); Aspartate Amino Transferase 37 U/L (14-36); Bilirubin,Total 0.4 mg/dl (0.2-1.3); Calcium 9.1 mg/dl (8.4-10.2); Carbon Dioxide 23 mmol/L (22.0-30.0); Globulin 3.0 g/dL (1.3-3.2); Glucose 91 mg/dl (74-100); Total Protein,Serum 7.2 g/dl (6.3-8.2)
[2025-07-03 10:45] VITALS: BP 104/71; PULSE 68; RESP 18; TEMP 36.6; O2SAT 100
== END 2025-07-03 10:53 | disposition home or self-care (01) ==
PROVIDERS: Emergency Provider Student in an Organized Health Care Education/Training Program; PCP Nurse Practitioner
DX: R10.30 Lower abdominal pain, unspecified (principal); R50.82 Postprocedural fever; N80.9 Endometriosis, unspecified; E28.2 Polycystic ovarian syndrome
CPT/HCPCS: 74177; 80053; 81001; 83605; 84703; 85025; 87040; 87636; 96361; 96374; 96375; 99285; J2270; J2405; J7120; Q9967